=== PATIENT | female | born 1950 | race Caucasian/White ===

== ENCOUNTER 2020-01-23 12:44 | Outpatient (CLI) | payer MEDICARE, OTHER, SELFPAY ==
--- NOTE | ~2020-01-23 | MM_ITS ---
EXAMINATION: MM screening rachel BI w jaime HISTORY: Screening mammogram TECHNIQUE: Craniocaudal and mediolateral oblique 3-D tomosynthesis images were obtained and synthetic 2-D images were generated. CAD analysis was submitted and interpreted. COMPARISON: Comparison to multiple prior studies sequentially, with oldest reviewed study dated 08/22. BREAST PARENCHYMAL COMPOSITION: There are scattered areas of fibroglandular density. FINDINGS: There is no evidence of suspicious mass, calcification, or architectural distortion to sugg est malignancy in either breast. There has been no suspicious interval change. IMPRESSION: 1. No mammographic evidence of malignancy. 2. Recommend routine screening mammography in one year. BI-RADS Category 1: Negative Reviewed, dictated and finalized at location A. [employer] RN
== END 2020-01-23 12:45 | disposition home or self-care (01) ==
LOC: ANHIMG 12:49
PROVIDERS: PCP Family Medicine; Visit Provider Family Medicine
DX: Z12.31 Encounter for screening mammogram for malignant neoplasm of breast (principal)
CPT/HCPCS: 77063; 77067

== ENCOUNTER 2021-09-24 09:50 | Outpatient (CLI) | payer MEDICARE, OTHER, SELFPAY ==
--- NOTE | ~2021-09-24 | DEXA_ITS ---
Bone Density Report Name: Mally De La Rosa Age: 71 Sex: Female Ethnicity: White Date of : 1950 Indication: postmenopausal; Referring Provider: Florentino Cottrell Study: Bone densitometry was performed. Exam Date: September 24, 2021 Accession number: [id number] Bone Density: Region BMD T-score Z-score Classification AP Spine (L1-L4) 1.004 -0.4 1.7 Normal Femoral Neck (Left) 0.707 -1.3 0.5 Osteopenia Total Hip (Left) 0.955 0.1 1.6 Normal Total Hip Bilateral Avg 0.948 0.1 1.6 Normal Femoral Neck (Right) 0.729 -1.1 0.7 Osteopenia Total Hip (Right) 0.941 0.0 1.5 Normal World Health Organization criteria for BMD impression classify patients as: Normal (T-score at or above -1.0), Osteopenia (T-score between -1.0 and -2.5), or Osteoporosis (T-score at or below -2.5). 10-year Fracture Risk(1): Major Osteoporotic Fracture 9.4% Hip Fracture 1.2% Reported Risk Factors: [place] (), Neck BMD=0.707, BMI=28.3 (1) FRAX(R) Version 3.08. Fracture probability calculated for an untreated patient. Fracture probability may be lower if the patient has received treatment. Previous Exams: Region Exam Age BMD T-score BMD Change BMD Change Date g/cm2 vs Baseline vs Previous AP Spine(L1-L4) 09/24/2021 71 1.004 -0.4 -0.001(-0.1%)# 0.004(0.4%) 12/27/2018 68 1.000 -0.4 -0.005(-0.5%)# -0.005(-0.5%) 12/05/2015 65 1.005 -0.4 0.000(0.0%)# 0.044(4.6%)# 08/08/2012 62 0.960 -0.8 -0.044(-4.4%)# -0.018(-1.9%)# 07/17/2008 58 0.979 -0.6 -0.026(-2.6%)* -0.026(-2.6%)* 01/01/2004 53 1.004 -0.4 Total Hip(Left) 09/24/2021 71 0.955 0.1 -0.023(-2.3%)# 0.001(0.1%) 12/27/2018 68 0.954 0.1 -0.023(-2.4%)# 0.002(0.2%) 12/05/2015 65 0.952 0.1 -0.025(-2.6%)# -0.009(-0.9%)# 08/08/2012 62 0.961 0.2 -0.016(-1.7%)# -0.008(-0.8%)# 07/17/2008 58 0.969 0.2 -0.008(-0.9%) -0.008(-0.9%) 01/01/2004 53 0.978 0.3 Total Hip(Right) 09/24/2021 71 0.941 0.0 -0.056(-5.6%)# -0.035(-3.5%)* 12/27/2018 68 0.976 0.3 -0.022(-2.2%)# 0.003(0.3%) 12/05/2015 65 0.973 0.3 -0.025(-2.5%)# 0.036(3.8%)# 08/08/2012 62 0.937 0.0 -0.060(-6.0%)# -0.046(-4.7%)# 07/17/2008 58 0.983 0.3 -0.014(-1.4%) -0.014(-1.4%) 01/01/2004 53 0.997 0.5 *Denotes significance at 95% confidence level, LSC for AP Spine = 0.022 g/cm2, LSC for Total Hip = 0.027 g/cm2 Clinical Information Provided by Patient: Has used the following medications:
== END 2021-09-24 09:51 | disposition home or self-care (01) ==
LOC: ANHIMG 09:53
PROVIDERS: PCP Family Medicine; Visit Provider Physician Assistant Medical
DX: Z78.0 Asymptomatic menopausal state (principal); M85.89 Other specified disorders of bone density and structure, multiple sites
CPT/HCPCS: 77080

== ENCOUNTER 2021-10-27 09:42 | Outpatient (CLI) | payer MEDICARE, OTHER, SELFPAY ==
--- NOTE | ~2021-10-27 | MM_ITS ---
EXAMINATION: MM screening rachel BI w jaime HISTORY: Screening mammogram TECHNIQUE: Craniocaudal and mediolateral oblique 3-D tomosynthesis images were obtained and synthetic 2-D images were generated. CAD analysis was submitted and interpreted. COMPARISON: 01/23/2020 bilateral screening mammogram 01/11/2019 diagnostic right mammogram and limited right breast ultrasound examination 12/27/2018, 12/15/2017 bilateral screening mammogram examinations BREAST PARENCHYMAL COMPOSITION: There are scattered areas of fibroglandular density. FINDINGS: New approximately 3.8 mm circumscribed opacity is noted posteriorly in the upper outer righ t breast on MLO view. New approximately 3.1 mm mass is noted posteriorly in the lower outer right tonny ast. Diagnostic right mammogram and right breast ultrasound examination are recommended. Otherwise there is no evidence of suspicious mass, calcification, or architectural distortion to sugg est malignancy in either breast. There has been no other suspicious interval change. IMPRESSION: 1. New posterior upper outer quadrant right breast 3.8 mm circumscribed mass and new 3.1 mm posterior lower outer right breast circumscribed mass 2. Diagnostic right mammogram and right breast ultrasound are recommended. BI-RADS Category 0: Incomplete: Needs additional imaging evaluation. Reviewed, dictated and finalized at location A. PROCESSOR IMPRESSION: 1. New posterior upper outer quadrant right breast 3.8 mm circumscribed mass an d new 3.1 mm posterior lower outer right breast circumscribed mass 2. Diagnostic right mammogram and right breast ultrasound are recommended. BI-RADS Category 0: Incomplete: Needs additional imaging evaluation.
== END 2021-10-27 09:43 | disposition home or self-care (01) ==
LOC: ANHIMG 09:44
PROVIDERS: PCP Family Medicine; Visit Provider Family Medicine
DX: Z12.31 Encounter for screening mammogram for malignant neoplasm of breast (principal); R92.8 Other abnormal and inconclusive findings on diagnostic imaging of breast
CPT/HCPCS: 77063; 77067

== ENCOUNTER 2021-11-09 12:43 | Outpatient (CLI) | payer MEDICARE, OTHER, SELFPAY ==
--- NOTE | ~2021-11-09 | MMUS_ITS ---
EXAMINATION: MM diagnostic rachel RT w jaime, US breast RT limited HISTORY: Right breast masses on screening mammogram TECHNIQUE: Additional 3-D tomosynthesis images of the right breast were performed and synthetic 2-D i mages were generated. CAD analysis was submitted and interpreted. High resolution limited right breas t ultrasound was performed. COMPARISON: 10/27/2021, 01/23/2020, 01/11/2019, 12/27/2018 , 12/15/2017, 12/05/2015 FINDINGS: MAMMOGRAPHIC FINDINGS: There is a 3 mm oval, obscured, equal density mass in the middle third of the lower-outer breast at t he 8:00 location 5 cm from the nipple. There is a 5 mm oval, circumscribed, equal density mass in the posterior third of the upper outer quadrant breast at the 10:00 location 8 cm from the nipple. ULTRASOUND: There is a 5 mm oval, circumscribed, parallel, hypoechoic mass with no posterior features or internal vascularity at the 10:00 location 5 cm from the nipple. There is a 2 mm round mass with otherwise si milar sonographic features at the 7:00 location 2 cm from the nipple. IMPRESSION: 1. Probably benign right breast masses. 2. Recommend 6 month follow-up right diagnostic mammogram and ultrasound. BI-RADS category 3, probably benign findings. Reviewed, dictated and finalized at location A. NESS PLANNING MANAGER IMPRESSION: 1. Probably benign right breast masses. 2. Recommend 6 month follow-up right diagnostic mammogram and ultrasound. BI-RADS category 3, probably benign findings.
== END 2021-11-09 12:44 | disposition home or self-care (01) ==
LOC: ANHIMG 12:44
PROVIDERS: PCP Family Medicine; Visit Provider Family Medicine
DX: N63.11 Unspecified lump in the right breast, upper outer quadrant (principal); N63.13 Unspecified lump in the right breast, lower outer quadrant
CPT/HCPCS: 76642; 77061; 77065; G0279

== ENCOUNTER 2022-06-11 11:49 | Outpatient (CLI) | payer MEDICARE, OTHER, SELFPAY ==
--- NOTE | ~2022-06-11 | MMUS_ITS ---
EXAMINATION: MM diagnostic rachel RT w jaime, US breast RT limited HISTORY: Six-month follow-up for probably benign right breast masses TECHNIQUE: Craniocaudal, mediolateral, and mediolateral oblique 3-D tomosynthesis images of the right breast were performed and synthetic 2-D images were generated. CAD analysis was submitted and interp reted. High resolution limited right breast ultrasound was performed. COMPARISON: 11/09/2021, 10/27/2021, 05/23/2020, 01/11/2019, 12/27/2018 FINDINGS: MAMMOGRAPHIC FINDINGS: There is stable 5 mm oval, circumscribed, equal density mass in the posterior third of the upper-oute r quadrant breast at the 10:00 location 8 cm from the nipple. The previously described 3 mm mass at t he 8:00 location 5 cm from the nipple was not well demonstrated. ULTRASOUND: A mass at the 10:00 location 5 cm from the nipple has an appearance consistent with a cyst. A [address] is also noted at the 7:00 location 2 cm from the nipple. No suspicious cystic or solid mass is rudy ntified. IMPRESSION: 1. No mammographic or sonographic evidence of malignancy. 2. Routine screening mammography is recommended. BI-RADS Category 2: Benign finding(s). Reviewed, dictated and finalized at location A. IMPRESSION: 1. No mammographic or sonographic evidence of malignancy. 2. Routine screening mammography is recommended. BI-RADS Category 2: Benign finding(s).
== END 2022-06-11 11:50 | disposition home or self-care (01) ==
LOC: ANHIMG 11:50
PROVIDERS: PCP Family Medicine; Visit Provider Physician Assistant
DX: R92.8 Other abnormal and inconclusive findings on diagnostic imaging of breast (principal)
CPT/HCPCS: 76642; 77061; 77065; G0279

== ENCOUNTER 2023-10-18 09:59 | Outpatient (CLI) | payer MEDICARE, OTHER, SELFPAY ==
--- NOTE | ~2023-10-18 | MM_ITS ---
EXAMINATION: MM screening rachel BI w jaime HISTORY: Screening mammogram TECHNIQUE: Craniocaudal and mediolateral oblique 3-D tomosynthesis images were obtained and synthetic 2-D images were generated. Bilateral rotated lateral CC views. CAD analysis was submitted and interp reted. COMPARISON: 06/11/2022 diagnostic right mammogram and limited right breast ultrasound examination 11/09/2021 diagnostic right mammogram and limited right breast ultrasound 10/27/2021, 01/23/2020 bilateral screening mammogram examinations BREAST PARENCHYMAL COMPOSITION: There are scattered areas of fibroglandular density. FINDINGS: There is focal asymmetric irregular density in the posterior mid to upper outer left breast . Diagnostic left mammogram and left breast ultrasound examination are recommended. Otherwise no suspicious mass, architectural distortion, malignant calcification, skin thickening or r etraction or significant new or developing density of either breast is detected. IMPRESSION: 1. New focal asymmetry in the posterior mid to upper outer left breast 2. Diagnostic left mammogram and left breast ultrasound examination are recommended. BI-RADS Category 0: Incomplete: Needs additional imaging evaluation. Reviewed, dictated and finalized at location A. FIC PERSONNEL SUPERVISOR IMPRESSION: 1. New focal asymmetry in the posterior mid to upper outer left breast 2. Diagnostic left mammogram and left breast ultrasound examination are recomme nded. BI-RADS Category 0: Incomplete: Needs additional imaging evaluation.
== END 2023-10-18 10:00 | disposition home or self-care (01) ==
PROVIDERS: PCP Family Medicine; Visit Provider Nurse Practitioner Family
DX: Z12.31 Encounter for screening mammogram for malignant neoplasm of breast (principal); R92.8 Other abnormal and inconclusive findings on diagnostic imaging of breast
CPT/HCPCS: 77063; 77067

== ENCOUNTER 2023-11-10 11:23 | Outpatient (CLI) | payer MEDICARE, OTHER, SELFPAY ==
--- NOTE | ~2023-11-10 | MMUS_ITS ---
EXAMINATION: MM diagnostic rachel LT w jaime, US breast LT complete HISTORY: Follow-up left breast asymmetry TECHNIQUE: Additional 3-D tomosynthesis images of the left breast were performed and synthetic 2-D im ages were generated. CAD analysis was submitted and interpreted. High resolution complete left breast ultrasound was performed. COMPARISON: Comparison to multiple prior studies sequentially, with oldest reviewed study dated 01/23. BREAST PARENCHYMAL COMPOSITION: Breast composed of scattered areas of fibroglandular density FINDINGS: MAMMOGRAPHIC FINDINGS: The left breast is stable. No new masses, calcifications or architectural distortion are identified. The asymmetry located centrally in the left breast on CC view is unchanged dating back to 01/23/2020. ULTRASOUND: Complete US of all 4 quadrants of the left breast and retroareolar region was reviewed. At 3:00, 1 cm from the nipple there is a 3 mm cyst. No suspicious solid masses to suggest malignancy. No evidence for malignancy in the left breast. IMPRESSION: 1. No evidence for malignancy in the left breast. 2. Routine yearly screening mammogram and regular clinical breast examination are recommended. BI-RADS Category 2: Benign finding(s). Reviewed, dictated and finalized at location A. OMIC PATHOLOGY ASSISTANT IMPRESSION: 1. No evidence for malignancy in the left breast. 2. Routine yearly screening mammogram and regular clinical breast examination a re recommended. BI-RADS Category 2: Benign finding(s).
== END 2023-11-10 11:24 | disposition home or self-care (01) ==
PROVIDERS: PCP Family Medicine; Visit Provider Family Medicine
DX: R92.8 Other abnormal and inconclusive findings on diagnostic imaging of breast (principal)
CPT/HCPCS: 76641; 77061; 77065; G0279

== ENCOUNTER 2024-05-09 14:29 | Outpatient (CLI) | payer MEDICARE, OTHER, SELFPAY ==
--- NOTE | ~2024-05-09 | XR_ITS ---
Right foot Technique: AP and lateral views were obtained. Clinical History: Pain Findings: No acute fracture or dislocation is seen. Osseous alignment is anatomic. Joint spaces are p reserved without erosive or degenerative change. Soft tissues are unremarkable. Impression: Unremarkable right foot radiographs. Reviewed, dictated and finalized at location . Impression: Unremarkable right foot radiographs.
--- NOTE | ~2024-05-09 | XR_ITS ---
Left ankle Technique: AP, oblique, and lateral views were obtained. Clinical History: Pain Findings: No acute fracture or dislocation is seen. Osseous alignment is anatomic. Ankle mortise and other visualized joint spaces are preserved. Soft tissues are otherwise unremarkable. Impression: Unremarkable left ankle. Reviewed, dictated and finalized at location . Impression: Unremarkable left ankle.
--- NOTE | ~2024-05-09 | XR_ITS ---
Left foot Technique: AP and lateral views were obtained. Clinical History: Pain Findings: No acute fracture or dislocation is seen. Osseous alignment is anatomic. Joint spaces are p reserved without erosive or degenerative change. Soft tissues are unremarkable. Impression: Unremarkable left foot radiographs. Reviewed, dictated and finalized at location . Impression: Unremarkable left foot radiographs.
== END 2024-05-09 14:30 ==
PROVIDERS: PCP Family Medicine; Visit Provider Family Medicine
DX: M79.671 Pain in right foot (principal); M79.672 Pain in left foot; M25.571 Pain in right ankle and joints of right foot; M25.572 Pain in left ankle and joints of left foot
CPT/HCPCS: 73610; 73620

== ENCOUNTER 2024-07-20 13:30 | Outpatient (RCR) | payer MEDICARE, OTHER, SELFPAY ==
--- NOTE | 2024-06-19 10:00 | OPREHPOC ---
Outpatient Therapy Plan of Care This is a Multidisciplinary Plan of Care that may contain components documented by all disciplines (PT, OT, and ST.) PT Problem 1 PT Problem #1 Knowledge Deficit PT Goal 1 Goal [place] with HEP Target Visit 4 Progress Met PT Problem 2 PT Problem #2 Impaired Range of Motion PT Goal 1 Goal Demonstrate 10+ degrees yulia dorsiflexion Target Visit 8 PT Problem 3 PT Problem #3 Impaired Gait PT Goal 1 Goal Patient will ambulate with even stride length bilaterally Target Visit 8 PT Problem 4 PT Problem #4 Impaired Strength PT Goal 1 Goal Patient will demonstrate yulia ankle strength to 5/5 to improve gross stabilization of ankles for ADL performance Target Visit 8
--- NOTE | 2024-06-19 10:00 | PTOPEVAL1 ---
Assessment and note entered by Ryan Hernandez, PT Evaluation Information Assessment Status Evaluation Diagnosis Right Foot pain Onset January 2024 Subjective Information Reports that she is having pain in both feet but mostly is on the right. The pain is not constant but has been going on for a few months and does not seem to begetting better. The more she is on her feet the more it hurts. Will occasionally get pain at night. In January she got really sick and it seem that she had issues starting after that. Reported Pain Level Pain Score 2: Self Report Assessment PT Clinical Summary Patient presents with sings and symptoms consistent with plantar fasciitis. She is showing gait modification and External Rotation of yulia feet and poor ankle dorsiflexion bilaterally. Tenderness noted to yulia plantar fascia. Patient will benefit from skilled therapy to address these deficits for gait improvement, ankle ROM improvement, and gross arch support strength for oil heaterman pain releif and function. Plan of Care Interventions Electrical Stimulation,Hot Pack/Cold Pack,Manual Therapy,Neuro Re-education,Therapeutic Activities, Therapeutic Exercise PT Services Indicated Yes Treatment Frequency and 2x/week for 8 visits Duration These treatments will address the objective and functional deficits as defined above. The patient will be advanced safely and appropriately in order for the patient to progress towards his/her prior level of function. Additional exercises will be introduced and as well as a comprehensive home exercise program upon discharge, if needed, ?to ensure carryover of functional gains achieved in the clinic. This treatment plan has been reviewed and agreement upon by the patient.
--- NOTE | 2024-07-18 09:46 | PCPTNOTE ---
Patient was canceled 07/10/24 due to therapist out with illness.
--- NOTE | 2024-07-20 14:14 | OPREHPOC ---
Outpatient Therapy Plan of Care This is a Multidisciplinary Plan of Care that may contain components documented by all disciplines (PT, OT, and ST.) PT Problem 1 PT Problem #1 Knowledge Deficit PT Goal 1 Goal / Goal Update [place] with HEP Target Visit 4 Progress Met PT Problem 2 PT Problem #2 Impaired Range of Motion PT Goal 1 Goal / Goal Update Demonstrate 10+ degrees yulia dorsiflexion Target Visit 8 Progress Met PT Problem 3 PT Problem #3 Impaired Gait PT Goal 1 Goal / Goal Update Patient will ambulate with even stride length bilaterally Target Visit 8 Progress Met PT Problem 4 PT Problem #4 Impaired Strength PT Goal 1 Goal / Goal Update Patient will demonstrate yulia ankle strength to 5/5 to improve gross stabilization of ankles for ADL performance Target Visit 8 Progress Met
--- NOTE | 2024-07-20 14:14 | PTOPDC ---
Assessment and note entered by Ryan Hernandez, PT Evaluation Information Assessment Status Discharge Diagnosis Right Foot pain Onset January 2024 Subjective Information Reports that overalls he feels eh is doing a lot better. Occasionally has bouts of increased pain, but not nearly as frequent or as intense as when she started. Feels comfortable with HEP and discharge. Reported Pain Level Pain Score 1: Self Report Assessment PT Clinical Summary Patient met all goals for therapy and is suitable for discharge to [facility] at this time. No concerns for discharge. Plan of Care PT Services Indicated D/C to [facility]
== END 2024-07-23 07:55 | disposition home or self-care (01) ==
LOC: ANHGOSHPT 13:30
PROVIDERS: PCP Family Medicine; Visit Provider Family Medicine
DX: M79.671 Pain in right foot (principal)
CPT/HCPCS: 97110; 97140; 97161; 97530

== ENCOUNTER 2024-11-23 09:12 | Outpatient (CLI) | payer MEDICARE, OTHER, SELFPAY | END 2024-11-23 09:13 | disposition home or self-care (01) | LOC: ANHAUDASC 09:13 | PROVIDERS: PCP Family Medicine; Visit Provider Family Medicine | DX: H90.3 Sensorineural hearing loss, bilateral (principal) | CPT/HCPCS: 92557; 92567 ==

== ENCOUNTER 2024-12-27 14:02 | Outpatient (CLI) | payer MEDICARE, OTHER, SELFPAY ==
--- NOTE | ~2024-12-27 | XR_ITS ---
EXAM: XR hand BI arthritis min 3V DATE: 12/27/2024 14:17 HISTORY: M25.541 - Pain in joints of right hand . COMPARISON: None available. FINDINGS: Normal mineralization. No fracture or dislocation. No lytic or blastic lesion. Mild and mo derate scattered arthritic changes in the bilateral hands, typical of osteoarthritis. No erosion or p eriosteal change. Soft tissues within normal limits. 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 Reviewed, dictated and finalized at location K. OUT MAN
== END 2024-12-27 14:03 | disposition home or self-care (01) ==
LOC: GOSHIMG 14:03
PROVIDERS: PCP Family Medicine; Visit Provider Family Medicine
DX: M25.542 Pain in joints of left hand (principal); M25.541 Pain in joints of right hand
CPT/HCPCS: 73130

== ENCOUNTER → 2025-01-11 09:35 | Outpatient (CLI) | payer MEDICARE, OTHER, SELFPAY ==
--- OUTSIDE RECORDS SUMMARY | 2025-01-11 07:53 | XMS_ITS | Clinical Summary ---
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 Gender Identity Not on file Sexual Orientation Not on file Plan of Treatment Health Maintenance Due Date Last Done Comments DEXA Bone Density 1950 Hepatitis C Virus (HCV) Screening 1950 TdaP Immunization 1950 Colonoscopy 1996 Colorectal Cancer Screening 1996 Cologuard 2001 Immunochemical Fecal Occult Blood 2001 Mammogram 2001 Zoster Immunization (1 of 2) 2001 Pneumococcal Immunization (50+ years) (2 of 2 - PPSV23) 10/28/2022 10/28/2021 Influenza Immunization (#1) 2024 12/0 11/2020, 09/23/2020, 09/10/2019, Additional history exists SARS-COV-2 Immunization ( season) 2024 09/04/2021, 01/31/2021, 01/10/2021 Respiratory Syncytial Virus (RSV) Immunization (Adult) (1 - 1-dose 75+ series) 2026 Hepatitis B Immunization Aged Out No longer eligible based on patient's age to complete this topic Meningococcal Immunization (ACWY) Aged Out No longer eligible based on patient's age to complete this topic Rotavirus Immunization Aged Out No lo nger eligible based on patient's age to complete this topic
--- OUTSIDE RECORDS SUMMARY | 2025-01-11 07:53 | XMS_ITS | Clinical Summary ---
Author Organization [facility] Address [address] [place] [address] Care Team Providers Care A And P Mechanic Name Role Phone Diane Cabrera MD Primary Care Provider [phone] [phone] Source Comments [facility],non-owned Affiliates and Associated Physician Practices is amultiple site organization consisting of ambulatory clinics and hospital sitesin [place], [place], [place] and [place]. This disclosure is being madepursuant to the Care Everywhere program and may not contain all information available regarding this patient. Last updated 18.[facility] Allergies No known active allergies Medications * Be aware that medications may not be up to date on this document. Alwaysverify current medications with the patient. Medication Sig Dispensed Refills Start Date End Date Status atorvastatin (Lipitor) 10 MG tablet Take 1 (one) tablet by mouth once daily 07/01/2024 Active levothyroxine (Synthroid) 50 MCG tablet Take 1 (one) tablet by mouth once daily 08/06/2024 Active PARoxetine CR 24hr (Paxil-Cr) 12.5 MG tablet Take 1 (one) tablet by mouth once daily 07/09/2024 Active propranolol (Inderal) 10 MG tablet TAKE 3 TABLETS BY MOUTH EVERY 12 HOURS 08/25/2024 Active Active Problems No known active problems Encounters Date Type Department Care Team Description 01/09/2025 11:00 AM MANAGER ONLINE Office Visit [facility] - [facility] [address] [place] [phone] Raven Salas P, BEAD PICKER-SHEARING SHED WORKER Orbital lesion (Primary Dx) 01/09/2025 Telephone [facility] [address] [place] [address] Raven Salas, BEAD PICKER-SHEARING SHED WORKER Follow-up 11/15/2024 6:33 AM MANAGER ONLINE - 11/15/2024 11:59 PM MANAGER ONLINE Hospital Encounter [facility] CAT SCAN [address] [place] [address] Jhonny Quick MD Discharge Disposition: Home or Self Care 11/15/2024 Travel 10/17/2024 8:45 AM MANAGER ONLINE Office Visit [facility] [place] [address] Jhonny Quick MD Orbital lesion (Primary Dx) 10/17/2024 Travel from Last 3 Months Social History Tobacco Use Types Packs/Day Years Used Date Smoking Tobacco: Never Assessed Sex and Gender Information Value Date Recorded Sex Assigned at Not on file Gender Identity Not on file Sexual Orientation Not on file Plan of Treatment Health Maintenance Due Date Last Done Comments BONE DENSITY TESTING 1950 COLOGUARD (AGES 45-75) - COL ON CA SCREENING 1950 COLON MONITORING 1950 COLONOSCOPY - COLON CA SCREENING 1950 CT COLONOGRAPHY - COLON CA SCREENING 1950 Colorectal Cancer Screening 1950 FIT - COLON CA SCREENING 1950 FLEX SIG - COLON CA SCREENING 1950 MAMMOGRAM 1950 MEDICARE AWV 12 MONTHS 1950 HEPATITIS C SCREENING 05/01/1969 DTAP/TDAP/TD VACCINES (1 - Tdap) 1970 PNEUMOCOCCAL VACCINE 50+ (1 of 1 - PCV) 2001 ZOSTER VACCINE (1 of 2) 2001 COVID-19 VACCINE ( - 2023-2 5 season) 2024 INFLUENZA VACCINE (#1) 2024 DEPRESSION SCREENING 11/28/2024 Respiratory Syncytial Virus (RSV) Vaccine Pt: or over 60 yrs (1 - 1-dose 75+ series) 2026 HEPATITIS B VACCINE Aged Out No longe r eligible based on patient's age to complete this topic HIB VACCINE Aged Out No longer eligi ble based on patient's age to complete this topic HPV VACCINE Aged Out No longer eligi ble based on patient's age to complete this topic MENINGOCOCCAL (Group B) VACCINE Aged Out No longer eligible based on patient's age to complete this topic MENINGOCOCCAL VACCINE Aged Out No daniel justin eligible based on patient's age to complete this topic Procedures Procedure Name Priority Date/Time Associated Diagnosis Comments CT ORBITS WWO CONTRAST Routine 11/15/2024 6:55 AM MANAGER ONLINE Orbital lesion CREATININE - POCT INTERFACED Routine 11/15/2024 6:40 AM MANAGER ONLINE from Last 3 Months Results * CT Orbits Wwo Contrast (11/15/2024 6:55 AM MANAGER ONLINE) Anatomical Region Laterality Modality Head Computed Tomogra phy 11/15/2024 7:05 AM MANAGER ONLINE Impressions 11/15/2024 11:15 AM MANAGER ONLINE IMPRESSION: 1.Rim-enhancing fluid collection/cystic lesion measuring up to 1.3 x 0.9 x 1.1 cm adjacent to the left lacrimal gland which may represent an inflamed left lacrimal gland cyst or abscess. 2.Mild enlargement and increased enhancement of left lacrimal gland compared to the right lacrimal gland which may represent inflammation of left lacrimal gland. The report was drafted by Krys Ledesma MD (residential direct support professional). I, Conrado Dahl MD have personally reviewed and interpreted this examination/study. > Interpreting Provider: Conrado Dahl MD on 11/15/2024 11:15 AM Narrative 11/15/2024 11:15 AM MANAGER ONLINE PROCEDURE: CT ORBITS WWO CONTRAST, DATE/TIME OF EXAM: 11/15/2024 6:56 AM, LOCATION [facility] INDICATION: H05.89: Orbital lesion COMPARISON: None. TECHNICAL: Contiguous axial images obtained through the orbits prior to and after the administration of IOPAMIDOL 76 % IV SOLN:100 mL intravenous contrast. Coronal and sagittal images were post processed. FINDINGS: There is a rim-enhancing fluid collection/cystic lesion measuring up to 1.3 x 0.9 x 1.1 cm (series 7 image 55, series 8 image 40) adjacent to the left lacrimal gland which may represent an inflamed left lacrimal gland cyst or abscess. Mild enlargement and increased enhancement of left lacrimal gland (series 7 image 61) compared to the right lacrimal gland. The globes are normal. The preseptal and postseptal soft tissues are normal without masses or inflammatory changes. The extraocular muscles, optic nerves and optic chiasm are normal. Normal enhancement of the superior opthalmic veins and cavernous sinuses is present. Small mucus retention cyst within the right maxillary sinus, otherwise imaged portions of the paranasal sinuses and mastoids are clear. Rightward deviation of nasal septum. Left conchal bullosa. The imaged brain is normal in attenuation. Procedure Note Conrado Dahl MD - 11/15/2024 PROCEDURE: CT ORBITS WWO CONTRAST, DATE/TIME OF EXAM: 11/15/2024 6:56AM, LOCATION [facility] INDICATION: H05.89: Orbital lesion COMPARISON: None. TECHNICAL: Contiguous axial images obtained through the orbits prior toand after the administration of IOPAMIDOL 76 % IV SOLN:100 mL intravenous contrast. Coronal and sagittal images were post processed. FINDINGS: There is a rim-enhancing fluid collection/cystic lesion measuring up to1.3 x 0.9 x 1.1 cm (series 7 image 55, series 8 image 40) adjacent to theleft lacrimal gland which may represent an inflamed left lacrimal gland cystor abscess. Mild enlargement and increased enhancement of left lacrimalgland (series 7 image 61) compared to the right lacrimal gland. The globes are normal. The preseptal and postseptal soft tissues arenormal without masses or inflammatory changes. The extraocular muscles, optic nerves and optic chiasm are normal. Normal enhancement of the superior opthalmic veins and cavernous sinusesis present. Small mucus retention cyst within the right maxillary sinus, otherwise imaged portions of the paranasal sinuses and mastoids are clear. Rightward deviation of nasal septum. Left conchal bullosa. The imaged brain is normal in attenuation. IMPRESSION: 1.Rim-enhancing fluid collection/cystic lesion measuring up to 1.3 x 0.9x 1.1 cm adjacent to the left lacrimal gland which may represent aninflamed left lacrimal gland cyst or abscess. 2.Mild enlargement and increased enhancement of left lacrimal gland compared to the right lacrimal gland which may represent inflammation of left lacrimal gland. The report was drafted by Krys Ledesma MD (residential direct support professional). I, Conrado Dahl MD have personally reviewed and interpreted this examination/study. > Interpreting Provider: Conrado Dahl MD on 11/15/2024 11:15 AM Jhonny Quick MD CT ORDERABLES * CREATININE - POCT INTERFACED (11/15/2024 6:40 AM MANAGER ONLINE) Creatinine POCT 0.58 0.30 - 1.30 mg/dL 11/15/2024 6:45 AM MANAGER ONLINE [facility] eGFR >90 >=90 mL/min/1.7 3 m2 11/15/2024 6:45 AM MANAGER ONLINE [facility] Blood BLOOD SPECIMEN / Unknown 11/15/2024 6:40 AM MANAGER ONLINE 11/15/2024 6:45 AM MANAGER ONLINE Jhonny Quick MD LAB - POINT OF CARE ORDERABLES Performing Organization Address City/State/[facility] Co de Phone Number [facility] [address] [place] [address], [facility] [phone] from Last 3 Months Care Teams A And P Mechanic Relationship Specialty Start Date End Date Diane Cabrera MD [address] [place] [address] PCP - General Family Medicine 09/17/24
--- OUTSIDE RECORDS SUMMARY | 2025-01-11 07:53 | XMS_ITS | Referral Summary ---
Author Organization [facility] Address [address] [facility] [place] [address] Care Team Providers Care Behavior Analyst Name Role Phone Diane Cabrera MD Primary Care Provider [phone] [phone] Source Comments [facility],non-owned Affiliates and Associated Physician Practices is amultiple site organization consisting of ambulatory clinics and hospital sitesin [place], [place], [place] and [place]. This disclosure is being madepursuant to the Care Everywhere program and may not contain all information available regarding this patient. Last updated 18.[facility] Encounters Date Type Department Care Team Description 01/09/2025 Telephone [facility] [place] [address] Raven Salas APRN-LINDA Follow-up 01/09/2025 11:00 AM BIOLOGIST AIDE Office Visit [facility] [address] [place] [address] Raven Salas, COMPUTER FORENSIC SPECIALIST-CUSTOMER SOLUTIONS ARCHITECT Orbital lesion (Primary Dx) 11/15/2024 Travel 11/15/2024 6:33 AM BIOLOGIST AIDE - 11/15/2024 11:59 PM BIOLOGIST AIDE Hospital Encounter [facility] CAT SCAN [address] [place] [address] Jhonny Quick MD Discharge Disposition: Home or Self Care 10/17/2024 Travel 10/17/2024 8:45 AM BIOLOGIST AIDE Office Visit [facility] [address] [place] [address] Jhonny Quick MD Orbital lesion (Primary Dx) from Last 3 Months Allergies No known active allergies Medications * [...] Active Active Problems No known active problems Social History Tobacco Use Types Packs/Day Years Used Date Smoking Tobacco: Never Assessed Sex and Gender Information Value Date Recorded Sex Assigned at Not on file Gender Identity Not on file Sexual Orientation Not on file Plan of Treatment Not on file Procedures Procedure Name Priority Date/Time Associated Diagnosis Comments CT ORBITS WWO CONTRAST Routine 11/15/2024 6:55 AM BIOLOGIST AIDE Orbital lesion CREATININE - POCT INTERFACED Routine 11/15/2024 6:40 AM BIOLOGIST AIDE from Last 3 Months Results * CT Orbits Wwo Contrast (11/15/2024 6:55 AM BIOLOGIST AIDE) Anatomical Region Laterality Modality Head Computed Tomogra phy 11/15/2024 7:05 AM BIOLOGIST AIDE Impressions 11/15/2024 11:15 AM BIOLOGIST AIDE IMPRESSION: 1.Rim-enhancing fluid collection/cystic lesion measuring up to 1.3 x 0.9 x 1.1 cm adjacent to the left lacrimal gland which may represent an inflamed left lacrimal gland cyst or abscess. 2.Mild enlargement and increased enhancement of left lacrimal gland compared to the right lacrimal gland which may represent inflammation of left lacrimal gland. The report was drafted by Krys Ledesma MD (vice president of academic affairs). I, Conrado Dahl MD have personally reviewed and interpreted this examination/study. > Interpreting Provider: Conrado Dahl MD on 11/15/2024 11:15 AM Narrative 11/15/2024 11:15 AM BIOLOGIST AIDE PROCEDURE: CT ORBITS WWO CONTRAST, DATE/TIME OF EXAM: 11/15/2024 6:56 AM, LOCATION [facility] INDICATION: H05.89: Orbital lesion COMPARISON: None. [...] CONTRAST, DATE/TIME OF EXAM: 11/15/2024 6:56AM, LOCATION [facility] INDICATION: H05.89: Orbital lesion COMPARISON: None. [...] report was drafted by Krys Ledesma MD (vice president of academic affairs). I, Conrado Dahl MD have personally reviewed and interpreted this examination/study. > Interpreting Provider: Conrado Dahl MD on 11/15/2024 11:15 AM Jhonny Quick MD CT ORDERABLES * CREATININE - POCT INTERFACED (11/15/2024 6:40 AM BIOLOGIST AIDE) Creatinine POCT 0.58 0.30 - 1.30 mg/dL 11/15/2024 6:45 AM BIOLOGIST AIDE [facility] eGFR >90 >=90 mL/min/1.7 3 m2 11/15/2024 6:45 AM BIOLOGIST AIDE [facility] Blood BLOOD SPECIMEN / Unknown 11/15/2024 6:40 AM BIOLOGIST AIDE 11/15/2024 6:45 AM BIOLOGIST AIDE Jhonny Quick MD LAB - POINT OF CARE ORDERABLES [facility] [address] [place] [address], [facility] [phone] from Last 3 Months Care Teams Behavior Analyst Relationship Specialty Start Date End Date Diane Cabrera MD [address] [place] [address] PCP - General Family Medicine 09/17/24
--- OUTSIDE RECORDS SUMMARY | 2025-01-11 07:53 | XMS_ITS | Patient Health Summary ---
Author Organization [facility] Address [address] [facility] [place] [address] Care Team Providers Care Pricing Associate Name Role Phone Diane Cabrera MD Primary Care Provider [phone] [phone] Note from [facility],non-owned Affiliates and Associated Physician Practices is amultiple site organization consisting of ambulatory clinics and hospital sitesin [place], [place], [place] and [place]. This disclosure is being madepursuant to the Care Everywhere program and may not contain all information available regarding this patient. Last updated 18.[facility] Allergies No known active allergies Medications * Be aware that medications may not be up to date on this document. Alwaysverify current medications with the patient. * atorvastatin (Lipitor) 10 MG tablet(Started 07/01/2024) Take 1 (one) tablet by mouth once daily * levothyroxine (Synthroid) 50 MCG tablet(Started 08/06/2024) Take 1 (one) tablet by mouth once daily * PARoxetine CR 24hr (Paxil-Cr) 12.5 MG tablet(Started 07/09/2024) Take 1 (one) tablet by mouth once daily * propranolol (Inderal) 10 MG tablet(Started 08/25/2024) TAKE 3 TABLETS BY MOUTH EVERY 12 HOURS Active Problems No known active problems Social History Tobacco Use Types Packs/Day Years Used Date Smoking Tobacco: Never Assessed Sex and Gender Information Value Date Recorded Sex Assigned at Not on file Gender Identity Not on file Sexual Orientation Not on file Procedures * CT ORBITS WWO CONTRAST(Performed 11/15/2024) Performed for Orbital lesion * CREATININE - POCT INTERFACED(Performed 11/15/2024) * EYE EXAM(Performed 09/14/2024) Results * CT Orbits Wwo Contrast (11/15/2024 6:55 AM DELIVERY DRIVER ASSISTANT) Anatomical Region Laterality Modality Head Computed Tomogra phy 11/15/2024 7:05 AM DELIVERY DRIVER ASSISTANT Impressions 11/15/2024 11:15 AM DELIVERY DRIVER ASSISTANT IMPRESSION: 1.Rim-enhancing fluid collection/cystic lesion measuring up [...] drafted by Krys Ledesma MD (vice president consulting services). I, Conrado Dahl MD have personally reviewed and interpreted this examination/study. > Interpreting Provider: Conrado Dahl MD on 11/15/2024 11:15 AM Narrative 11/15/2024 11:15 AM DELIVERY DRIVER ASSISTANT PROCEDURE: CT ORBITS WWO CONTRAST, DATE/TIME OF EXAM: 11/15/2024 6:56 AM, LOCATION [facility] INDICATION: H05.89: Orbital lesion COMPARISON: None. [...] CONTRAST, DATE/TIME OF EXAM: 11/15/2024 6:56AM, LOCATION [facility] INDICATION: H05.89: Orbital lesion COMPARISON: None. [...] drafted by Krys Ledesma MD (vice president consulting services). I, Conrado Dahl MD have personally reviewed and interpreted this examination/study. > Interpreting Provider: Conrado Dahl MD on 11/15/2024 11:15 AM Jhonny Quick MD CT ORDERABLES * CREATININE - POCT INTERFACED (11/15/2024 6:40 AM DELIVERY DRIVER ASSISTANT) Creatinine POCT 0.58 0.30 - 1.30 mg/dL 11/15/2024 6:45 AM DELIVERY DRIVER ASSISTANT [facility] eGFR >90 >=90 mL/min/1.7 3 m2 11/15/2024 6:45 AM DELIVERY DRIVER ASSISTANT [facility] Blood BLOOD SPECIMEN / Unknown 11/15/2024 6:40 AM DELIVERY DRIVER ASSISTANT 11/15/2024 6:45 AM DELIVERY DRIVER ASSISTANT Jhonny Quick MD LAB - POINT OF CARE ORDERABLES [facility] [address] [place] [address], [facility] [phone] * EYE EXAM (09/14/2024) Anatomical Region Laterality Modality Other Narrative 09/14/2024 Ordered by an unspecified provider. Scanned Document SCANNING ONLY Care Teams Pricing Associate Relationship Specialty Start Date End Date Diane Cabrera MD [address] [place] [address] PCP - General Family Medicine 09/17/24
--- OUTSIDE RECORDS SUMMARY | 2025-02-05 10:30 | XMS_ITS | Referral Summary ---
Author Organization [facility] Address [address] [place] [address] Care Team Providers Care Childrens Club Attendant Name Role Phone Diane Cabrera MD Primary Care Provider [phone] [phone] Source Comments [facility],non-owned Affiliates and Associated Physician Practices is amultiple site organization consisting of ambulatory clinics and hospital sitesin [place], [place], [place] and [place]. This disclosure is being madepursuant to the Care Everywhere program and may not contain all information available regarding this patient. Last updated 18.[facility] Encounters Date Type Department Care Team Description 01/09/2025 Telephone [facility] [address] [place] [address] Raven Salas APRN-LINDA Follow-up 01/09/2025 11:00 AM EDITOR FARM JOURNAL Office Visit [facility] [address] [place] [address] Raven Salas APRN-LINDA Orbital lesion (Primary Dx) 11/15/2024 Travel 11/15/2024 6:33 AM EDITOR FARM JOURNAL - 11/15/2024 11:59 PM [facility] Hospital Encounter [facility] CAT SCAN [address] [place] [address] Jhonny Quick MD Discharge Disposition: Home or [...] ORBITS WWO CONTRAST Routine 11/15/2024 6:55 AM EDITOR FARM JOURNAL Orbital lesion CREATININE - POCT INTERFACED Routine 11/15/2024 6:40 AM EDITOR FARM JOURNAL from Last 3 Months Results * CT Orbits Wwo Contrast (11/15/2024 6:55 AM EDITOR FARM JOURNAL) Anatomical Region Laterality Modality Head Computed Tomogra phy 11/15/2024 7:05 AM EDITOR FARM JOURNAL Impressions 11/15/2024 11:15 AM EDITOR FARM JOURNAL IMPRESSION: 1.Rim-enhancing fluid collection/cystic lesion measuring up [...] by Krys Ledesma MD (vice president of sales). I, Conrado Dahl MD have personally reviewed and interpreted this examination/study. > Interpreting Provider: Conrado Dahl MD on 11/15/2024 11:15 AM Narrative 11/15/2024 11:15 AM EDITOR FARM JOURNAL PROCEDURE: CT ORBITS WWO CONTRAST, DATE/TIME OF EXAM: 11/15/2024 6:56 AM, LOCATION [facility] INDICATION: H05.89: Orbital lesion [...] CONTRAST, DATE/TIME OF EXAM: 11/15/2024 6:56AM, LOCATION [facility] INDICATION: H05.89: Orbital lesion [...] by Krys Ledesma MD (vice president of sales). I, Conrado Dahl MD have personally reviewed and interpreted this examination/study. > Interpreting Provider: Conrado Dahl MD on 11/15/2024 11:15 AM Jhonny Quick MD CT ORDERABLES * CREATININE - POCT INTERFACED (11/15/2024 6:40 AM EDITOR FARM JOURNAL) Creatinine POCT 0.58 0.30 - 1.30 mg/dL 11/15/2024 6:45 AM EDITOR FARM JOURNAL [facility] eGFR >90 >=90 mL/min/1.7 3 m2 11/15/2024 6:45 AM EDITOR FARM JOURNAL [facility] Blood BLOOD SPECIMEN / Unknown 11/15/2024 6:40 AM EDITOR FARM JOURNAL 11/15/2024 6:45 AM EDITOR FARM JOURNAL Jhonny Quick MD LAB - POINT OF CARE ORDERABLES [facility] [address] [place] [address], [facility] [phone] from Last 3 Months Care Teams Childrens Club Attendant Relationship Specialty Start Date End Date Diane Cabrera MD [address] [place] [phone] PCP - General Family Medicine 09/17/24
--- OUTSIDE RECORDS SUMMARY | 2025-02-05 10:30 | XMS_ITS | Clinical Summary ---
Author Organization [facility] [employer] Address [address] [place] [address] Care Team Providers Care Dietary Services Manager Name Role Phone Diane Cabrera MD Primary Care Provider [phone] [phone] Source Comments [facility] [employer],non-owned Affiliates and Associated Physician Practices is amultiple site organization consisting of ambulatory clinics and hospital sitesin [place], [place], [place] and [place]. This disclosure is being madepursuant to the Care Everywhere program and may not contain all information available regarding this patient. Last updated 18.[facility] Allergies No known active allergies Medications * [...] Department Care Team Description 01/09/2025 11:00 AM ELECTRICIANS TOP HELPER Office Visit [facility] [address] [place] [phone] Raven Salas P, GASOLINE LOCOMOTIVE CRANE OPERATOR-MUSIC ASSISTANT Orbital lesion (Primary Dx) 01/09/2025 Telephone [facility] [address] [facility] [place] [address] Raven Salas, GASOLINE LOCOMOTIVE CRANE OPERATOR-MUSIC ASSISTANT Follow-up 11/15/2024 6:33 AM ELECTRICIANS TOP HELPER - 11/15/2024 11:59 PM ELECTRICIANS TOP HELPER Hospital Encounter [facility] CAT SCAN [address] [place] [address] Jhonny Quick MD Discharge Disposition: Home or [...] ORBITS WWO CONTRAST Routine 11/15/2024 6:55 AM ELECTRICIANS TOP HELPER Orbital lesion CREATININE - POCT INTERFACED Routine 11/15/2024 6:40 AM ELECTRICIANS TOP HELPER from Last 3 Months Results * CT Orbits Wwo Contrast (11/15/2024 6:55 AM ELECTRICIANS TOP HELPER) Anatomical Region Laterality Modality Head Computed Tomogra phy 11/15/2024 7:05 AM ELECTRICIANS TOP HELPER Impressions 11/15/2024 11:15 AM ELECTRICIANS TOP HELPER IMPRESSION: 1.Rim-enhancing fluid collection/cystic lesion measuring up to 1.3 x 0.9 x 1.1 cm adjacent to the left lacrimal gland which may represent an inflamed left lacrimal gland cyst or abscess. 2.Mild enlargement and increased enhancement of left lacrimal gland compared to the right lacrimal gland which may represent inflammation of left lacrimal gland. The report was drafted by Krys Ledesma MD (president consumer electronics company). I, Conrado Dahl MD have personally reviewed and interpreted this examination/study. > Interpreting Provider: Conrado Dahl MD on 11/15/2024 11:15 AM Narrative 11/15/2024 11:15 AM ELECTRICIANS TOP HELPER PROCEDURE: CT ORBITS WWO CONTRAST, DATE/TIME OF EXAM: 11/15/2024 6:56 AM, LOCATION [facility] INDICATION: H05.89: Orbital lesion COMPARISON: None. [...] CONTRAST, DATE/TIME OF EXAM: 11/15/2024 6:56AM, LOCATION [facility] INDICATION: H05.89: Orbital lesion COMPARISON: None. [...] report was drafted by Krys Ledesma MD (president consumer electronics company). I, Conrado Dahl MD have personally reviewed and interpreted this examination/study. > Interpreting Provider: Conrado Dahl MD on 11/15/2024 11:15 AM Jhonny Quick MD CT ORDERABLES * CREATININE - POCT INTERFACED (11/15/2024 6:40 AM ELECTRICIANS TOP HELPER) Creatinine POCT 0.58 0.30 - 1.30 mg/dL 11/15/2024 6:45 AM ELECTRICIANS TOP HELPER [facility] eGFR >90 >=90 mL/min/1.7 3 m2 11/15/2024 6:45 AM ELECTRICIANS TOP HELPER [facility] Blood BLOOD SPECIMEN / Unknown 11/15/2024 6:40 AM ELECTRICIANS TOP HELPER 11/15/2024 6:45 AM ELECTRICIANS TOP HELPER Jhonny Quick MD LAB - POINT OF CARE ORDERABLES [facility] [address] [place] [address], [facility] [phone] from Last 3 Months Care Teams Dietary Services Manager Relationship Specialty Start Date End Date Diane Cabrera MD [address] [place], [place] [address] PCP - General Family Medicine 09/17/24
--- OUTSIDE RECORDS SUMMARY | 2025-02-05 10:30 | XMS_ITS | Clinical Summary ---
Author Organization [facility] Care Team Providers Care Heating And Cooling Systems Engineer Name Role Phone Unavailable Primary Care Provider Unavailabl e Social History Tobacco Use Types Packs/Day Years Used Date Smoking Tobacco: Never Assessed Comments Unknown Sex and Gender Information Value Date Recorded Sex Assigned at Not on file Legal Sex Female 9:30 AM SOLAR RESOURCE ASSESSOR Gender Identity Not on file Sexual Orientation [...]
--- OUTSIDE RECORDS SUMMARY | 2025-02-05 10:30 | XMS_ITS | Patient Health Summary ---
Author Organization [facility] Address [address] [place] [address] Care Team Providers Care School Child Care Attendant Name Role Phone Diane Cabrera MD Primary Care Provider [phone] Note from [facility],non-owned Affiliates and Associated Physician Practices is amultiple site organization consisting of ambulatory clinics and hospital sitesin [place], [place], [place] and [place]. This disclosure is being madepursuant to the Care Everywhere program and may not contain all information available regarding this patient. Last updated 18.[facility] Allergies No known active allergies Medications * [...] CT Orbits Wwo Contrast (11/15/2024 6:55 AM COLLEGE SPECIALIST) Anatomical Region Laterality Modality Head Computed Tomogra phy 11/15/2024 7:05 AM COLLEGE SPECIALIST Impressions 11/15/2024 11:15 AM COLLEGE SPECIALIST IMPRESSION: 1.Rim-enhancing fluid collection/cystic lesion measuring up to 1.3 x 0.9 x 1.1 cm adjacent to the left lacrimal gland which may represent an inflamed left lacrimal gland cyst or abscess. 2.Mild enlargement and increased enhancement of left lacrimal gland compared to the right lacrimal gland which may represent inflammation of left lacrimal gland. The report was drafted by Krsy Ledesma MD (vice president corporate communications). I, Conrado Dahl MD have personally reviewed and interpreted this examination/study. > Interpreting Provider: Conrado Dahl MD on 11/15/2024 11:15 AM Narrative 11/15/2024 11:15 AM COLLEGE SPECIALIST PROCEDURE: CT ORBITS WWO CONTRAST, DATE/TIME OF EXAM: 11/15/2024 6:56 AM, LOCATION [facility] INDICATION: H05.89: Orbital lesion COMPARISON: [...] CONTRAST, DATE/TIME OF EXAM: 11/15/2024 6:56AM, LOCATION [facility] INDICATION: H05.89: Orbital lesion COMPARISON: [...] drafted by Krys Ledesma MD (vice president corporate communications). I, Conrado Dahl MD have personally reviewed and interpreted this examination/study. > Interpreting Provider: Conrado Dahl MD on 11/15/2024 11:15 AM Jhonny Quick MD CT ORDERABLES * CREATININE - POCT INTERFACED (11/15/2024 6:40 AM COLLEGE SPECIALIST) Creatinine POCT 0.58 0.30 - 1.30 mg/dL 11/15/2024 6:45 AM COLLEGE SPECIALIST [facility] eGFR >90 >=90 mL/min/1.7 3 m2 11/15/2024 6:45 AM COLLEGE SPECIALIST [facility] Blood BLOOD SPECIMEN / Unknown 11/15/2024 6:40 AM COLLEGE SPECIALIST 11/15/2024 6:45 AM COLLEGE SPECIALIST Jhonny Quick MD LAB - POINT OF CARE ORDERABLES [facility] [address] [place] [address], [facility] [phone] * EYE EXAM (09/14/2024) Anatomical Region Laterality Modality Other Narrative 09/14/2024 Ordered by an unspecified provider. Scanned Document SCANNING ONLY Care Teams School Child Care Attendant Relationship Specialty Start Date End Date Diane Cabrera MD [address] [place] [address] PCP - General Family Medicine 09/17/24
--- NOTE | 2025-02-05 16:04 | WPDSLEEPSTUD ---
Sleep Study Date of Study: 01/11/25 Ordering Provider: Diane Cabrera MD Interpreting Physician: Carli Brown DO Sleep Study Type: Polysomnogram Height: 1.6 m Weight: 74.843 kg Body Mass Index: 29.2 Neck Circumference (inches): 16 [place]: 15 Reason for Sleep Study Excessive daytime sleepiness Sleep History The patient is a 74-year-old female who had a sleep study ordered by her primary care physician for evaluation of sleep apnea. The patient denies awakening from sleep short of breath. She occasionally awakens at night with heartburn, belching, or cough. She frequently snores, and it is frequently loud enough that others complain. She frequently has trouble sleeping when she has a cold. She denies waking up gasping for air throughout the night. She occasionally has breathing problems at night observed by herself or others. She denies sweating excessively at night. She denies having heart palpitations or irregular heartbeats during the night. She occasionally falls asleep during the day, but rarely while driving. She denies sleep paralysis and cataplexy. She occasionally has trouble at work or school due to sleepiness. She frequently experiences vivid dreamlike scenes upon awakening or falling asleep. She rarely feels afraid of going to sleep. She occasionally has nightmares. She frequently remembers her dreams. She frequently has thoughts racing through her mind. She occasionally feels sad, depressed, and anxious. She occasionally has muscular tension. She rarely notices parts of her body jerk. She denies kicking during the night. She occasionally has crawling and aching feelings in her legs and occasionally has leg pain during the night. She occasionally awakens with morning jaw pain and constantly grinds her teeth during sleep. She is occasionally bothered by pain during the day and occasionally awakened by pain during the night. She occasionally wakes up feeling stiff in the morning. She occasionally wakes up with sore or achy muscles. She occasionally wakes up with pain in the neck, spine, and other joints. She goes to bed at midnight on both weekdays and weekends. It takes her 15 to 60 minutes to fall asleep. She wakes up twice throughout the night to urinate, and it can take her up to an hour to fall back asleep. She wakes up between 8 to 8:30 AM on both weekdays and weekends. She typically gets 7.5 hours of sleep per night. She will stay in bed for 15 minutes after waking up in the morning. She currently lives with her adult son. She denies consuming any caffeinated beverages within two hours of bedtime. She denies engaging in physical exercise before bedtime. She will read and watch television before falling asleep. She will take naps in the afternoon or the evening, and they are refreshing. She consumes an alcoholic beverage maybe once per month. She denies consuming caffeinated beverages throughout the day. She denies tobacco and recreational drug use. [facility] Past Medical History Medical History Adjustment disorder with anxious mood Family History Family History Mother Hypertension Family history of cardiovascular disease Cerebrovascular accident Family history of malignant neoplasm of breast in first degree relative Family history of congestive heart failure Father Asthma Family history of allergic disorder Sibling Family history of allergic disorder Other Family history of malignant neoplasm Social History Social History Smoking status: Never smoker Second hand tobacco smoke exposure: No Alcohol intake: current Alcohol use details: Occasional Substance use: never Substance use type: does not use Do You Feel Safe in your Home?: Yes Lack of Transportation: No Lack of Food: Never True Current Housing: I Have Housing Concerned About Future Housing: No Difficulty Paying Gas/Electric Bills: No Difficulty Paying for Meds: No Currently Unemployed: No Education: Bachelor's Degree Difficulty w/ Childcare or Family Care: No Living arrangements: with family Occupation/Education: retired Gender identity (if verbalized by the patient): Female Spiritual care concerns: No Agree to blood products: Yes Medications Home Medications ?Medication ?Instructions ?Recorded ?Confirmed ?Type levothyroxine 50 mcg tablet 50 mcg PO DAILY #90 tabs 11/01/24 12/27/24 Rx propranolol 10 mg tablet 30 mg (3 x 10 mg) PO Q12H #540 tabs 11/20/24 12/27/24 Rx atorvastatin 10 mg tablet 10 mg PO DAILY #90 tabs 12/26/24 12/27/24 Rx diclofenac sodium 75 mg 75 mg PO BID #180 tabs 12/27/24 12/27/24 Rx tablet,delayed release paroxetine HCl 12.5 mg 12.5 mg PO DAILY #90 tabs 01/04/25 Rx tablet,extended release 24 hr Sleep Procedure A full night polysomnogram using the [employer] SleepClear Advantage Collar multi-channel system recorded the standard physiologic parameters including EEG, EOG, submentalis EMG, anterior tibialis EMG, EKG, body position, nasal and oral airflow using nasal pressure sensor and thermistor.? Respiratory parameters of chest and abdominal movements were recorded with Respiratory Inductance Plethysmography belts. Oxygen saturation was recorded by pulse oximetry. Video monitoring was also performed. Sleep stages, periodic limb movements, and EEG arousals were scored in 30 second epochs according to the criteria of the AASM Scoring Manual. The Apnea-Hypopnea Index was calculated using [facility] guidelines for definition of hypopnea with 4% O2 desaturations while scoring respiratory events. Sleep Architecture The total recording time was 437.4 minutes.? The total sleep time was 287.5 minutes. Sleep latency was 23.6 minutes. REM latency was 229.5 minutes. Sleep efficiency was 65.7%. The patient had 38 awakenings for an awakening index of 7.9. Wake after sleep onset time was 126.0 minutes. The patient spent 12.0 minutes, 4.2% of total sleep time in Stage N1. The patient spent 168.0 minutes, 58.4% in Stage N2. The patient spent 82.5 minutes, 28.7% in Stage N3. The patient spent 25.0 minutes, 8.7% in Stage REM sleep. Respiratory Analysis The patient had 18 hypopneas, 13 obstructive apneas and 28 central apneas for an overall Apnea Hypopnea Index of 12.3. The REM Apnea Hypopnea Index was 36.0. The NREM Apnea Hypopnea Index was 10.7. The patient had a Central Apnea Hypopnea Index of 5.8, which is elevated (normal < 5). There were 1 Respiratory Effort Related Arousals resulting in a RERA index of 0.2 events per hour. The Respiratory Disturbance Index is 16.7 events per hour. There was no evidence of Edgar-Cole Respirations. Arousals There were 217 total arousals for an arousal index of 45.3. There were 59 spontaneous arousals for an index of 12.3. There were 26 arousals due to respiratory events for an index of 5.4. There were 113 arousals due to periodic limb movements for an index of 23.6.? There were 20 arousals due to isolated limb movements for an index of 4.2. Periodic Limb Movements The patient had 40 isolated limb movements with an index of 8.3. The patient had 362 periodic limb movements with an index of 75.5, which is elevated (normal < 15). Patient had a total of 402 limb movements with a total limb movement index of 83.9. Oximetry Data The patient had an average oxygen saturation of 92.4% in sleep with a minimum oxygen saturation of 85.0% and a maximum oxygen saturation of 98.0%. The patient had 29 oxygen desaturations that were 4% or greater resulting in an Oxygen Desaturation Index of 6.1.? The patient spent 2.4 minutes, 0.6% of total sleep time with an oxygen saturation below 88%. Snoring Profile Mild snoring was present throughout the study. Cardiac Profile The EKG showed normal sinus rhythm with multi-focal PVCs. The patient had an average pulse rate of 59.0 bpm with a minimum pulse of rate of 45.0 bpm and a maximum pulse rate of 90.0 bpm.? EEG Profile No signs of seizure activity seen. Assessment and Plan Assessment and Plan (1) NAIN (obstructive sleep apnea): Code(s): G47.33 - Obstructive sleep apnea (adult) (pediatric) Status: Acute Assessment and Plan: The patient had an overall AHI of 12.3 with desaturation down to 85%. This is consistent with mild sleep apnea. Due to the patient's anxiety, she qualifies for treatment. The patient had a central apnea index of 5.8, which is elevated (normal < 5). Due to the patient's elevated central apnea index, she is not an ideal candidate for AutoPAP. AutoPAP can increase the frequency and severity of central apneas. I recommend that the patient have a CPAP Titration study with the use of a hypnotic (Lunesta 2-3 mg or Ambien 5-10 mg) to ensure we obtain enough sleep data and find an optimal pressure setting. (2) PLMD (periodic limb movement disorder): Code(s): G47.61 - Periodic limb movement disorder Status: Acute Assessment and Plan: The patient had a significant number of limb movements during the study with the majority being periodic in nature. Approximately 1/3 of the periodic limb movements caused arousals in the patient's sleep. The patient's sleep history does not strongly suggest Restless Leg Syndrome. I recommend that the patient have a serum ferritin drawn for evaluation of iron deficiency anemia. If the patient has a serum ferritin less than 75 ng/mL, I recommend starting a daily iron supplement and a Vitamin C supplement for better absorption. If the serum ferritin is greater than 75 ng/mL, I recommend starting a dopamine agonist and titrating the dose until symptoms resolve. There are nonpharmacological methods to treat limb movements including daily exercise, stretching calf muscles before bed, avoiding excessive amounts of caffeine and alcohol, vitamin B supplementation, magnesium lotion massaged into legs before bed, and use of a weighted blanket. Data The data obtained during this sleep study is adequate for interpretation. Certification This sleep study has been reviewed by a board certified sleep medicine physician.
[2025-02-05 16:05] VITALS: BMI 29.2
== END ==
LOC: ANHCSM 02-05 09:35
PROVIDERS: PCP Family Medicine; Visit Provider Family Medicine
DX: G47.10 Hypersomnia, unspecified (principal); R06.83 Snoring; G47.33 Obstructive sleep apnea (adult) (pediatric); G47.61 Periodic limb movement disorder
CPT/HCPCS: 95810

== ENCOUNTER 2025-01-18 13:30 | Outpatient (CLI) | payer MEDICARE, OTHER, SELFPAY ==
--- NOTE | ~2025-01-18 | DEXA_ITS ---
Bone Density Report Name: SENTHIL SANCHEZ Age: 74 Sex: Female Ethnicity: White Date of : 1950 Indication: postmenopausal; screening for osteoporosis; Referring Provider: JEROD ABREU Study: Bone densitometry was performed. Exam Date: January 18, 2025 Accession number: [id number] Bone Density: Region BMD T-score Z-score Classification AP Spine(L1-L4) 1.075 0.3 2.6 Normal Femoral Neck (Left) 0.726 -1.1 0.9 Osteopenia Total Hip (Left) 0.969 0.2 1.9 Normal Femoral Neck (Right) 0.722 -1.1 0.9 Osteopenia Total Hip (Right) 0.958 0.1 1.8 Normal Total Hip Mean 0.964 0.2 1.9 Normal World Health Organization criteria for BMD impression classify patients as: Normal (T-score at or above -1.0), Osteopenia (T-score between -1.0 and -2.5), or Osteoporosis (T-score at or below -2.5). 10-year Fracture Risk(1): Major Osteoporotic Fracture 9.4% Hip Fracture 1.3% Reported Risk Factors: [place] (), Neck BMD=0.726, BMI=30.7 (1) FRAX(R) Version 3.08. Fracture probability calculated for an untreated patient. Fracture probability may be lower if the patient has received treatment. Previous Exams: Region Exam Age BMD T-score BMD Change BMD Change Date g/cm2 vs Baseline vs Previous Total Hip(Left) 01/18/2025 74 0.969 0.2 0.008 (0.8%) 0.014 (1.5%)# 09/24/2021 71 0.955 0.1 -0.006 (-0.6%) 0.001 (0.1%) 12/27/2018 68 0.954 0.1 -0.007 (-0.7%) 0.002 (0.2%) 12/05/2015 65 0.952 0.1 -0.009 (-0.9%) -0.009 (-0.9%) 08/08/2012 62 0.961 0.2 Total Hip(Right) 01/18/2025 74 0.958 0.1 0.021 (2.3%) 0.017 (1.8%)# 09/24/2021 71 0.941 0.0 0.004 (0.4%)# -0.035 (-3.5%) 12/27/2018 68 0.976 0.3 0.039 (4.1%)# 0.003 (0.3%) 12/05/2015 65 0.973 0.3 0.036 (3.8%)# 0.036 (3.8%)# 08/08/2012 62 0.937 0.0 *Denotes significance at 95% confidence level, LSC for Total Hip = 0.027 g/cm2 # Denotes dissimilar scan types or analysis methods Clinical Information Provided by Patient: Has used the following medications: Vitamin D, Calcium Patient maximum height was 62 Menopause Age: 53 Onset of menses at age 14 Number of children 2 Impression: The patient has low bone mass, based on the Left Femoral Neck T-score. The patient has an estimated ten-year risk of hip fracture of 1.3% and an estimated ten-year risk of major fracture of 9.4%, based on the WHO FRAX algorithm. No significant bone loss was observed. Discussion: BONE DENSITY IS LOW AT ONE OR MORE SKELETAL SITES. This patient's lowest T-score is low at one or more skeletal sites. It meets the World Health Organization's (WHO) criteria for ?low bone mass? (T-score between -1.0 and -2.5). The patient's 10-year risk of fracture as calculated by FRAX is less than the threshold where pharmacological therapy is recommended by the National Osteoporosis Foundation (NOF). However, all treatment decisions require clinical judgment and consideration of individual patient factors, including patient preferences, comorbidities, previous drug use, risk factors not captured in the FRAX model (e.g., frailty, falls, vitamin D deficiency, increased bone turnover, interval significant decline in bone density) and possible under or overestimation of fracture risk by FRAX. The patient should follow a healthful lifestyle (good nutrition with adequate calcium and vitamin D, and appropriate weight-bearing exercise). Follow-Up: Consider repeating this study in 2 to 3 years to reassess this patient's status, or sooner if there is some new clinical indication. Reported by: SAVANNA on 01/21/2025 8:02:00 AM. Reviewed, dictated and finalized at location AJean Paul MASTERSON
--- NOTE | ~2025-01-18 | MM_ITS ---
EXAMINATION: MM screening [facility] BI w jaime HISTORY: Screening TECHNIQUE: Craniocaudal and mediolateral oblique 3-D tomosynthesis images were obtained and synthetic 2-D images were generated. CAD analysis was submitted and interpreted. COMPARISON: Comparison to multiple prior studies sequentially, with oldest reviewed study dated 01/23. BREAST PARENCHYMAL COMPOSITION: Not dense: There are scattered areas of fibroglandular density. FINDINGS: There is no evidence of suspicious mass, calcification, or architectural distortion to sugg est malignancy in either breast. There has been no suspicious interval change. IMPRESSION: 1. No mammographic evidence of malignancy. 2. Recommend routine screening mammography in one year. BI-RADS Category 1: Negative Reviewed, dictated and finalized at location L. AT TANKER DRIVER
--- OUTSIDE RECORDS SUMMARY | 2025-01-18 13:42 | XMS_ITS | Referral Summary ---
Author Organization [facility] Address [address] [place] [address] Care Team Providers Care Food Taster Name Role Phone Diane Cabrera MD Primary Care Provider [phone] [phone] Source Comments [facility],non-owned Affiliates and Associated Physician Practices is amultiple site organization consisting of ambulatory clinics and hospital sitesin [place], [place], [place] and [place]. This disclosure is being madepursuant to the Care Everywhere program and may not contain all information available regarding this patient. Last updated 18.[facility] Encounters Date Type Department Care Team Description 01/09/2025 Telephone [facility] [place] [address] Raven Salas APRN-LINDA Follow-up 01/09/2025 11:00 AM FLATLOCK SEWING MACHINE OPERATOR Office Visit [facility] [address] [place] [address] Raven Salas APRN-LINDA Orbital lesion (Primary Dx) 11/15/2024 Travel 11/15/2024 6:33 AM FLATLOCK SEWING MACHINE OPERATOR - 11/15/2024 11:59 PM [facility] Hospital Encounter [facility] SCAN [address] [place] [address] Jhonny Quick MD Discharge Disposition: Home or Self Care from Last 3 Months Allergies No known [...] ORBITS WWO CONTRAST Routine 11/15/2024 6:55 AM FLATLOCK SEWING MACHINE OPERATOR Orbital lesion CREATININE - POCT INTERFACED Routine 11/15/2024 6:40 AM FLATLOCK SEWING MACHINE OPERATOR from Last 3 Months Results * CT Orbits Wwo Contrast (11/15/2024 6:55 AM FLATLOCK SEWING MACHINE OPERATOR) Anatomical Region Laterality Modality Head Computed Tomogra phy 11/15/2024 7:05 AM FLATLOCK SEWING MACHINE OPERATOR Impressions 11/15/2024 11:15 AM FLATLOCK SEWING MACHINE OPERATOR IMPRESSION: 1.Rim-enhancing fluid collection/cystic lesion measuring up to 1.3 x 0.9 x 1.1 cm adjacent to the left lacrimal gland which may represent an inflamed left lacrimal gland cyst or abscess. 2.Mild enlargement and increased enhancement of left lacrimal gland compared to the right lacrimal gland which may represent inflammation of left lacrimal gland. The report was drafted by Krys Ledesma MD (residential caregiver). I, Conrado Dahl MD have personally reviewed and interpreted this examination/study. > Interpreting Provider: Conrado Dahl MD on 11/15/2024 11:15 AM Narrative 11/15/2024 11:15 AM FLATLOCK SEWING MACHINE OPERATOR PROCEDURE: CT ORBITS WWO CONTRAST, DATE/TIME OF EXAM: 11/15/2024 6:56 AM, LOCATION [facility] INDICATION: H05.89: Orbital lesion COMPARISON: None. TECHNICAL: [...] CONTRAST, DATE/TIME OF EXAM: 11/15/2024 6:56AM, LOCATION [facility] INDICATION: H05.89: Orbital lesion COMPARISON: None. TECHNICAL: [...] was drafted by Krys Ledesma MD (residential caregiver). I, Conrado Dahl MD have personally reviewed and interpreted this examination/study. > Interpreting Provider: Conrado Dahl MD on 11/15/2024 11:15 AM Jhonny Quick MD CT ORDERABLES * CREATININE - POCT INTERFACED (11/15/2024 6:40 AM FLATLOCK SEWING MACHINE OPERATOR) Creatinine POCT 0.58 0.30 - 1.30 mg/dL 11/15/2024 6:45 AM FLATLOCK SEWING MACHINE OPERATOR [facility] eGFR >90 >=90 mL/min/1.7 3 m2 11/15/2024 6:45 AM FLATLOCK SEWING MACHINE OPERATOR [facility] Blood BLOOD SPECIMEN / Unknown 11/15/2024 6:40 AM FLATLOCK SEWING MACHINE OPERATOR 11/15/2024 6:45 AM FLATLOCK SEWING MACHINE OPERATOR Jhonny Quick MD LAB - POINT OF CARE ORDERABLES [facility] [address] [place] [address], [facility] [phone] from Last 3 Months Care Teams Food Taster Relationship Specialty Start Date End Date Diane Cabrera MD [address] [place] [phone] PCP - General Family Medicine 09/17/24
--- OUTSIDE RECORDS SUMMARY | 2025-01-18 13:42 | XMS_ITS | Clinical Summary ---
Author Organization [facility] Care Team Providers Care Director Pharmacy Services Name Role Phone Unavailable Primary Care Provider Unavailabl e Social History Tobacco Use Types Packs/Day Years Used Date Smoking Tobacco: Never Assessed Comments Unknown Sex and Gender Information Value Date Recorded Sex Assigned at Not on file Legal Sex Female 9:30 AM RISK MANAGEMENT CONSULTANT Gender Identity Not on file Sexual Orientation [...]
--- OUTSIDE RECORDS SUMMARY | 2025-01-18 13:42 | XMS_ITS | Clinical Summary ---
Author Organization [facility] [employer] Address [address] [place] [address] Care Team Providers Care Biology Professor Name Role Phone Diane Cabrera MD Primary Care Provider [phone] [phone] Source Comments [facility] [employer],non-owned Affiliates and Associated Physician Practices is amultiple site organization consisting of ambulatory clinics and hospital sitesin [place], [place], [place] and [place]. This disclosure is being madepursuant to the Care Everywhere program and may not contain all information available regarding this patient. Last updated 18.[facility] [employer] Allergies No known active allergies Medications * [...] Department Care Team Description 01/09/2025 11:00 AM SLUDGE MILL OPERATOR Office Visit [facility] [address] [place] [address] [phone] Raven Salas P, DIRECTOR OF ENTERPRISE ARCHITECTURE-CHIEF CONTROLLER Orbital lesion (Primary Dx) 01/09/2025 Telephone [facility] [address] [facility] [place] [address] Raven Salas, DIRECTOR OF ENTERPRISE ARCHITECTURE-CHIEF CONTROLLER Follow-up 11/15/2024 6:33 AM SLUDGE MILL OPERATOR - 11/15/2024 11:59 PM SLUDGE MILL OPERATOR Hospital Encounter [facility] CAT SCAN [address] [place] [address] Jhonny Quick MD Discharge Disposition: Home or Self Care 11/15/2024 Travel from Last 3 Months Social History [...] VACCINE (1 of 2) 2001 COVID-19 VACCINE (2023-2 5 season) 2024 INFLUENZA VACCINE (#1) 2024 [...] ORBITS WWO CONTRAST Routine 11/15/2024 6:55 AM SLUDGE MILL OPERATOR Orbital lesion CREATININE - POCT INTERFACED Routine 11/15/2024 6:40 AM SLUDGE MILL OPERATOR from Last 3 Months Results * CT Orbits Wwo Contrast (11/15/2024 6:55 AM SLUDGE MILL OPERATOR) Anatomical Region Laterality Modality Head Computed Tomogra phy 11/15/2024 7:05 AM SLUDGE MILL OPERATOR Impressions 11/15/2024 11:15 AM SLUDGE MILL OPERATOR IMPRESSION: 1.Rim-enhancing fluid collection/cystic lesion measuring up to 1.3 x 0.9 x 1.1 cm adjacent to the left lacrimal gland which may represent an inflamed left lacrimal gland cyst or abscess. 2.Mild enlargement and increased enhancement of left lacrimal gland compared to the right lacrimal gland which may represent inflammation of left lacrimal gland. The report was drafted by Krys Ledesma MD (operations vice president). I, Conrado Dahl MD have personally reviewed and interpreted this examination/study. > Interpreting Provider: Conrado Dahl MD on 11/15/2024 11:15 AM Narrative 11/15/2024 11:15 AM SLUDGE MILL OPERATOR PROCEDURE: CT ORBITS WWO CONTRAST, DATE/TIME OF EXAM: 11/15/2024 6:56 AM, LOCATION [facility] INDICATION: H05.89: Orbital lesion COMPARISON: None. TECHNICAL: [...] is normal in attenuation. Procedure Note Conrado aDhl MD - 11/15/2024 PROCEDURE: CT ORBITS WWO CONTRAST, DATE/TIME OF EXAM: 11/15/2024 6:56AM, LOCATION [facility] INDICATION: H05.89: Orbital lesion COMPARISON: None. TECHNICAL: [...] report was drafted by Krys Ledesma MD (operations vice president). I, Conrado Dahl MD have personally reviewed and interpreted this examination/study. > Interpreting Provider: Conrado Dahl MD on 11/15/2024 11:15 AM Jhonny Quick MD CT ORDERABLES * CREATININE - POCT INTERFACED (11/15/2024 6:40 AM SLUDGE MILL OPERATOR) Creatinine POCT 0.58 0.30 - 1.30 mg/dL 11/15/2024 6:45 AM SLUDGE MILL OPERATOR [facility] eGFR >90 >=90 mL/min/1.7 3 m2 11/15/2024 6:45 AM SLUDGE MILL OPERATOR [facility] Blood BLOOD SPECIMEN / Unknown 11/15/2024 6:40 AM SLUDGE MILL OPERATOR 11/15/2024 6:45 AM SLUDGE MILL OPERATOR Jhonny Quick MD LAB - POINT OF CARE ORDERABLES [facility] [address] [place] [address], [facility] [phone] from Last 3 Months Care Teams Biology Professor Relationship Specialty Start Date End Date Diane Cabrera MD [address] [place], [place] [address] PCP - General Family Medicine 09/17/24
--- OUTSIDE RECORDS SUMMARY | 2025-01-18 13:42 | XMS_ITS | Patient Health Summary ---
Author Organization [facility] Address [address] [place] [address] Care Team Providers Care Geotechnical Intern Name Role Phone Diane Cabrera MD Primary Care Provider [phone] Note from [facility],non-owned Affiliates and Associated Physician Practices is amultiple site organization consisting of ambulatory clinics and hospital sitesin [place], [place], [place] and [place]. This disclosure is being madepursuant to the Care Everywhere program and may not contain all information available regarding this patient. Last updated 18.[facility] Allergies No known active allergies Medications [...] CT Orbits Wwo Contrast (11/15/2024 6:55 AM US ADMINISTRATIVE LAW JUDGE) Anatomical Region Laterality Modality Head Computed Tomogra phy 11/15/2024 7:05 AM US ADMINISTRATIVE LAW JUDGE Impressions 11/15/2024 11:15 AM US ADMINISTRATIVE LAW JUDGE IMPRESSION: 1.Rim-enhancing fluid collection/cystic lesion measuring up to 1.3 x 0.9 x 1.1 cm adjacent to the left lacrimal gland which may represent an inflamed left lacrimal gland cyst or abscess. 2.Mild enlargement and increased enhancement of left lacrimal gland compared to the right lacrimal gland which may represent inflammation of left lacrimal gland. The report was drafted by Krys Ledesma MD (residential door unit installer). I, Conrado Dahl MD have personally reviewed and interpreted this examination/study. > Interpreting Provider: Conrado Dahl MD on 11/15/2024 11:15 AM Narrative 11/15/2024 11:15 AM US ADMINISTRATIVE LAW JUDGE PROCEDURE: CT ORBITS WWO CONTRAST, DATE/TIME OF EXAM: 11/15/2024 6:56 AM, LOCATION [facility] INDICATION: H05.89: Orbital lesion COMPARISON: [...] CONTRAST, DATE/TIME OF EXAM: 11/15/2024 6:56AM, LOCATION [facility] INDICATION: H05.89: Orbital lesion COMPARISON: [...] was drafted by Krys Ledesma MD (residential door unit installer). I, Conrado Dahl MD have personally reviewed and interpreted this examination/study. > Interpreting Provider: Conrado Dahl MD on 11/15/2024 11:15 AM Jhonny Quick MD CT ORDERABLES * CREATININE - POCT INTERFACED (11/15/2024 6:40 AM US ADMINISTRATIVE LAW JUDGE) Creatinine POCT 0.58 0.30 - 1.30 mg/dL 11/15/2024 6:45 AM US ADMINISTRATIVE LAW JUDGE [facility] eGFR >90 >=90 mL/min/1.7 3 m2 11/15/2024 6:45 AM US ADMINISTRATIVE LAW JUDGE [facility] Blood BLOOD SPECIMEN / Unknown 11/15/2024 6:40 AM US ADMINISTRATIVE LAW JUDGE 11/15/2024 6:45 AM US ADMINISTRATIVE LAW JUDGE Jhonny Quick MD LAB - POINT OF CARE ORDERABLES [facility] [address] [place] [address], [facility] [phone] * EYE EXAM (09/14/2024) Anatomical Region Laterality Modality Other Narrative 09/14/2024 Ordered by an unspecified provider. Scanned Document SCANNING ONLY Care Teams Geotechnical Intern Relationship Specialty Start Date End Date Diane Cabrera MD [address] [place] [address] PCP - General Family Medicine 09/17/24
== END 2025-01-18 13:31 | disposition home or self-care (01) ==
LOC: ANHIMG 13:33
PROVIDERS: PCP Family Medicine; Visit Provider Family Medicine
DX: Z12.31 Encounter for screening mammogram for malignant neoplasm of breast (principal); M85.89 Other specified disorders of bone density and structure, multiple sites; Z78.0 Asymptomatic menopausal state; Z13.820 Encounter for screening for osteoporosis
CPT/HCPCS: 77063; 77067; 77080

== ENCOUNTER 2025-03-27 09:51 | Outpatient (CLI) | payer MEDICARE, OTHER, SELFPAY ==
--- OUTSIDE RECORDS SUMMARY | 2025-03-27 10:49 | XMS_ITS | Clinical Summary ---
Author Organization [facility] Care Team Providers Care Food And Beverage Coordinator Name Role Phone Unavailable Primary Care Provider Unavailabl e Social History Tobacco Use Types Packs/Day Years Used Date Smoking Tobacco: Never Assessed Comments Unknown Sex and Gender Information Value Date Recorded Sex Assigned at Not on file Legal Sex Female 9:30 AM [employer] Gender Identity Not on file Sexual Orientation [...]
--- OUTSIDE RECORDS SUMMARY | 2025-03-27 10:49 | XMS_ITS | Clinical Summary ---
Author Organization [facility] Address [address] [place] [address] Care Team Providers Care Intranet Developer Name Role Phone Diane Cabrera MD Primary Care Provider [phone] Source Comments [facility],non-owned Affiliates and Associated Physician Practices is amultiple site organization consisting of ambulatory clinics and hospital sitesin [place], [place], [place] and [place]. This disclosure is being madepursuant to the Care Everywhere program and may not contain all information available regarding this patient. Last updated 18.[facility] Allergies No known active allergies Medications * Be aware that medications may not be up to date on this document. Alwaysverify current medications with the patient. atorvastatin (Lipitor) 10 MG tablet Take 1 (one) tablet by mouth once daily 4 Active levothyroxine (Synthroid) 50 MCG tablet Take 1 (one) tablet by mouth once daily 4 Active PARoxetine CR 24hr (Paxil-Cr) 12.5 MG tablet Take 1 (one) tablet by mouth once daily 4 Active propranolol (Inderal) 10 MG tablet TAKE 3 TABLETS BY MOUTH EVERY 12 HOURS 4 Active diclofenac sodium EC (Voltaren) 75 MG tablet Take 1 (one) tablet by mouth 2 times daily 5 Active multivitamin daily tablet Take 1 (one) tablet by mouth daily with food Active calcium 500 mg tablet Take 1 (one) tablet by mouth 2 times daily with morning and evening meal Active vitamin D3 (Cholecalcifero l) 10 MCG (400 UNIT) tablet Take 1 (one) tablet by mouth once daily Active Multiple Vitamins-Minera ls (PreserVision AREDS 2) capsule Take 2 (two) capsules by mouth 2 times daily Active eszopiclone (Lunesta) 3 MG tablet TAKE 1/2 -1 TABLET BY MOUTH PRIOR TO SLEEP STUDY 5 03/20/20 25 Discontinu ed(List Clean-Up) meloxicam (Mobic) 15 MG tablet Take 1 (one) tablet by mouth once daily 4 03/20/20 25 Discontinu ed(List Clean-Up) Active Problems No known active problems Encounters Date Type Department Care Team Description 02/27/2025 Telephone [facility] - Ophthalmology [address] [place] [phone] Raven Salas APRN-CNP Surgery Scheduling 01/09/2025 11:00 AM GEOMAGNETIST Office Visit [facility] - Ophthalmology [address] [place] [phone] Raven Salas APRN-CNP Orbital lesion (Primary Dx) 01/09/2025 Telephone [facility] - Ophthalmology [address] [place] [phone] Raven Salas APRN-CNP Follow-up from Last 3 Months Social History Tobacco Use Types Packs/Day Years Used Date Smoking Tobacco: Never Smokeless Tobacco: Never Tobacco Cessation:Counseling Given: Not Answered Alcohol Use Standard Drinks/Week Comments Yes 0 (1 standard drink = 0.6 oz pur e alcohol) rare Comments Unknown Sex and Gender Information Value Date Recorded Sex Assigned at Not on file Legal Sex Female 1:39 PM CDT Gender Identity Not on file Sexual Orientation Not on file Last Filed Vital Signs Vital Sign Reading Time Taken Comments Blood Pressure - - Pulse - - Temperature - - Respiratory Rate - - Oxygen Saturation - - Inhaled Oxygen Concentration - - Weight 73.9 kg (163 lb) 03/20/2025 9:50 AM CDT Height 160 cm (5' 3 ) 03/20/2025 9:50 AM CDT Body Mass Index 28.87 03/20/2025 9:50 AM CDT Plan of Treatment Upcoming Encounters Date Type Department Care Team (Latest Contact Info) Description 04/01/2025 11:05 AM CDT Hospital Encounter [facility]AMB SURGERY [address] [place] [phone] Rosemary Cary MD [address] [place] [address] [place] [phone] Surgery General 04/01/2025 11:05 AM CDT Anesthesia Event [facility]TNA[facility]AMB SURGERY [address] [place] [phone] Savana Hutton, ASSISTED LIVING ASSOCIATE-SPEAKER WIRER [address] [facility], [place] [place] [address] 04/01/2025 11:05 AM CDT - 04/01/2025 12:25 PM CDT Surgery [facility] OR CHETNA/AMB SURGERY [address] [place] [phone] Rosemary Cary MD [address] [place] [address] [place] [id number] Left orbitotomy with excisional biopsy, LEFT EYE 04/09/2025 10:30 AM CDT Office Visit [facility] - Ophthalmology [address] [place] [phone] Raven Salas, ASSISTED LIVING ASSOCIATE-SPEAKER WIRER [address] [place] [address] [place] [phone] Scheduled Procedures Name Priority Associated Diagnoses Date/Ti me ORBITOTOMY Orbital lesion 04/01/2025 11:05 AM CDT Health Maintenance Due Date Last Done Comments [...] VACCINE (1 of 2) 2001 COVID-19 VACCINE (1 - 2023-2 5 season) 2024 DEPRESSION SCREENING 11/28/2024 INFLUENZA VACCINE (Season Ended) 2025 Respiratory Syncytial Virus (RSV) Vaccine Pt: or [...] to complete this topic MENINGOCOCCAL (Group B) VACC INE SHARED DECISION-MAKING Aged Out No longer eligibl e based on patient's age to complete this topic MENINGOCOCCAL GROUPS A/C/Y/W VACCINE Aged Out No longer eligible b ased on patient's age to complete this topic Insurance MEDICARE [facility] [place] Care Teams Intranet Developer Relationship Specialty Start Date End Date Diane Cabrera MD [address] [place] [phone] PCP - General Family Medicine 09/17/24
[2025-04-25 11:37] VITALS: BMI 28.8
--- NOTE | 2025-04-25 11:37 | P.SLEEP_ITS ---
Sleep Study Date of Study: 03/27/25 Ordering Provider: Diane Cabrera MD Interpreting Physician: Carli Brown DO Sleep Study Type: CPAP Titration Height: 1.6 m Weight: 73.936 kg Body Mass Index: 28.8 Neck Circumference (inches): 15 Stratton: 15 Reason for Sleep Study Polysomnogram on 01/11/2025 showed an overall AHI of 12.3, DMITRI of 5.8 and desaturation down to 85%. Sleep History The patient is a 74-year-old female who had a sleep study ordered by her primary care physician for evaluation of sleep apnea. The patient denies awakening from sleep short of breath. She occasionally awakens at night with heartburn, belching, or cough. She frequently snores, and it is frequently loud enough that others complain. She frequently has trouble sleeping when she has a cold. She denies waking up gasping for air throughout the night. She occasionally has breathing problems at night observed by herself or others. She denies sweating excessively at night. She denies having heart palpitations or irregular hear tbeats during the night. She occasionally falls asleep during the day, but rarely while driving. She denies sleep paralysis and cataplexy. She occasionally has trouble at work or school due to sleepiness. She frequently experiences vivid dreamlike scenes upon awakening or falling asleep. She rarely feels afraid of going to sleep. She occasionally has nightmares. She frequently remembers her dreams. She frequently has thoughts racing through her mind. She occasionally feels sad, depressed, and anxious. She occasionally has muscular tension. She rarely notices parts of her body jerk. She denies kicking during the night. She occasionally has crawling and aching feelings in her legs and occasionally has leg pain during the night. She occasionally awakens with morning jaw pain and constantly grinds her teeth during sleep. She is occasionally bothered by pain during the day and occasionally awakened by pain during the night. She occasionally wakes up feeling stiff in the morning. She occasionally wakes up with sore or achy muscles. She occasionally wakes up with pain in the neck, spine, and other joints. She goes to bed at midnight on both weekdays and weekends. It takes her 15 to 60 minutes to fall asleep. She wakes up twice throughout the night to urinate, and it can take her up to an hour to fall back asleep. She wakes up between 8 to 8:30 AM on both weekdays and weekends. She typically gets 7.5 hours of sleep per night. She will stay in bed for 15 minutes after waking up in the morning. She currently lives with her adult son. She denies consuming any caffeinated beverages within two hours of bedtime. She denies engaging in physical exercise before bedtime. She will read and watch television before falling asleep. She will take naps in the afternoon or the evening, and they are refreshing. She consumes an alcoholic beverage maybe once per month. She denies consuming caffeinated beverages throughout the day. She denies tobacco and recreational drug use. FORMERLY [facility] Past Medical History Medical History Adjustment disorder with anxious mood Family History Family History Mother Hypertension Family history of cardiovascular disease Cerebrovascular accident Family history of malignant neoplasm of breast in first degree relative Family history of congestive heart failure Father Asthma Family history of allergic disorder Sibling Family history of allergic disorder Other Family history of malignant neoplasm Social History Social History Smoking status: Never smoker Second hand tobacco smoke exposure: No Alcohol intake: current Alcohol use details: Occasional Substance use: never Substance use type: does not use Do You Feel Safe in your Home?: Yes Lack of Transportation: No Lack of Food: Never True Current Housing: I Have Housing Concerned About Future Housing: No Difficulty Paying Gas/Electric Bills: No Difficulty Paying for Meds: No Currently Unemployed: No Education: Bachelor's Degree Difficulty w/ Childcare or Family Care: No Living arrangements: with family Occupation/Education: retired Gender identity (if verbalized by the patient): Female Spiritual care concerns: No Agree to blood products: Yes Medications Home Medications ?Medication ?Instructions ?Recorded ?Confirmed ?Type levothyroxine 50 mcg tablet 50 mcg PO DAILY #90 tabs 11/01/24 12/27/24 Rx atorvastatin 10 mg tablet 10 mg PO DAILY #90 tabs 12/26/24 12/27/24 Rx diclofenac sodium 75 mg 75 mg PO BID #180 tabs 12/27/24 12/27/24 Rx tablet,delayed release paroxetine HCl 12.5 mg 12.5 mg PO DAILY #90 tabs 01/04/25 Rx tablet,extended release 24 hr eszopiclone 3 mg tablet (Lunesta) See Rx Instructions .Route 02/05/25 Rx .COMPLEX #1 tablet propranolol 10 mg tablet 30 mg (3 x 10 mg) PO Q12H #540 tabs 02/20/25 Rx Sleep Procedure A full night CPAP Titration using the Bi[employer] Medical multi-channel system recorded the standard physiologic parameters including EEG, EOG, submentalis EMG, anterior tibialis EMG, EKG, body position, nasal and oral airflow using nasal pressure sensor and thermistor.? Respiratory parameters of chest and abdominal movements were recorded with Respiratory Inductance Plethysmography belts. Oxygen saturation was recorded by pulse oximetry. Video monitoring was also performed. Sleep stages, periodic limb movements, and EEG arousals were scored in 30 second epochs according to the criteria of the AASM Scoring Manual. The Apnea-Hypopnea Index was calculated using CMS guidelines for definition of hypopnea with 4% O2 desaturations while scoring respiratory events. Sleep Architecture The total recording time was 465.4 minutes.? The total sleep time was 434.0 minutes. Sleep latency was 3.4 minutes. REM latency was 81.5 minutes. Sleep efficiency was 93.2%. The patient had 20 awakenings for an awakening index of 2.8. Wake after Sleep Onset time was 28.0 minutes. The patient spent 11.5 minutes, 2.6% of total sleep time in Stage N1. The patient spent 188.0 minutes, 43.3% in Stage N2. The patient spent 128.0 minutes, 29.5% in Stage N3. The patient spent 106.5 minutes, 24.5% in Stage REM. Respiratory Analysis The patient had 4 hypopneas, 22 mixed apneas, and 62 central apneas for an overall Apnea Hypopnea Index of 12.2 events per hour. The REM Apnea Hypopnea Index was 6.2. The NREM Apnea Hypopnea Index was 14.1. The patient had a Central Apnea Hypopnea Index of 8.6. There was no evidence of Edgar-Cole Respirations. The patient was started on CPAP 5 cm H2O and titrated to CPAP 9 cm H2O due to central and mixed apneas. The patient was able to fall asleep starting on CPAP 5 cm H2O. The patient was able to achieve REM sleep starting on CPAP 7 cm H2O with EPR of 2. The lowest residual AHI the patient was able to achieve during the study was 6.6 on 7 cm H2O. On CPAP 7 cm H2O, the patient spent 110 minutes in NREM and 80 minutes in REM with 13 central apneas, 5 mixed apneas and 3 hypopneas, resulting in an AHI of 6.6. The patient had a sleep efficiency of 99.2% on this pressure setting. Arousals There were 100 total arousals for an arousal index of 13.8. There were 11 spontaneous arousals for an index of 1.5. ?There were 22 arousals due to respiratory events for an index of 3.0. There were 56 arousals due to periodic limb movements for an index of 7.7.? There were 9 arousals due to isolated limb movements for an index of 1.2. Periodic Limb Movements The patient had 39 isolated limb movements with an index of 5.4. The patient had 529 periodic limb movements with index of 73.1, which is elevated (normal < 15). Patient had a total of 568 limb movements with a total limb movement index of 78.5. Oximetry Data The patient had an average oxygen saturation of 94.3% in sleep with a minimum oxygen saturation of 90.0% and a maximum oxygen saturation of 98.0%. The patient had 12 oxygen desaturations that were 4% or greater resulting in an Oxygen Desaturation Index of 1.7.? The patient spent 0 minutes of total sleep time with an oxygen saturation below 88%. Snoring Profile Snores were rarely present throughout the study. Cardiac Profile The EKG showed normal sinus rhythm with occasional PVCs. The patient had an average pulse rate of 50.5 bpm with a minimum pulse rate of 45.0 bpm and a maximum pulse rate of 62.0 bpm. ? EEG Profile No signs of seizure activity seen. Assessment and Plan Assessment and Plan (1) Treatment-emergent central sleep apnea: Code(s): T81.89XA - Other complications of procedures, not elsewhere classified, initial encounter; G47.33 - Obstructive sleep apnea (adult) (pediatric); G47.37 - Central sleep apnea in conditions classified elsewhere Status: Acute Assessment and Plan: The patient was started on CPAP 5 cm H2O and titrated to CPAP 9 cm H2O due to central and mixed apneas. The majority of the patient's respiratory events were central apneas which can occur when a patient is initially started on CPAP. The majority of the central apneas should resolve on its own within the first 90 days of CPAP therapy. I recommend that the patient be prescribed CPAP 7 cm H2O, size medium Resmed AirTouch F20 full face mask, CPAP filters/tubing and heated humidity. If the patient's compliance data after 3 months shows an elevated AHI >5 with the majority being central apneas, the patient will need an ASV Titration. On the patient's polysomnogram in December 2024, she had a central apnea index of 5.8, which is elevated. I recommend that the patient have an echocardiogram done to rule out cardiogenic causes for an elevated central apnea index. In the event that the treatment-emergent central apneas persist, she will need to have an ejection fraction of 45% or greater to be a candidate for ASV. This should be used with all episodes of sleep.? Compliance should be reviewed within 31-90 days of starting therapy for usage greater than 4 hours per night greater than 70% of the nights. The patient should be asked about symptoms such as?excessive daytime sleepiness, quality of sleep, decreased nocturia, increased?mental functioning such as memory, mood, and concentration. Data The data obtained during this sleep study is adequate for interpretation. Certification This sleep study has been reviewed by a board certified sleep medicine physician.
== END 2025-03-28 07:12 | disposition home or self-care (01) ==
LOC: ANHCSM 09:52
PROVIDERS: PCP Family Medicine; Visit Provider Family Medicine
DX: G47.33 Obstructive sleep apnea (adult) (pediatric) (principal); G47.39 Other sleep apnea; T81.89XA Other complications of procedures, not elsewhere classified, initial encounter
CPT/HCPCS: 95811

== ENCOUNTER 2025-05-29 09:34 | Outpatient (CLI) | payer MEDICARE, OTHER, SELFPAY ==
--- NOTE | 2025-05-29 09:45 | ECHO_ITS ---
Patient Info Name: Mally De La Rosa Age: 75 years : 1950 Gender: Female Ht: 63 in Wt: 165 lbs BSA: 1.85 m2 HR: 54 bpm BP: 174 / 97 mmHg Technical Quality: Excellent Exam Date: 05/29/2025 9:51 AM Patient Status: O Admit Date: 05/29/2025 Exam Type: CA echo doppler color flow Complete two-dimensional, color flow and Doppler transthoracic echocardiogram is performed. Php Mag[employer] Developer: Elicia Larios Attending Provider: Diane Cabrera MD Summary 1. Complete two-dimensional, color flow and Doppler transthoracic echocardiogram is performed. 2. Left ventricular chamber dimension is normal. 3. Left ventricular systolic function is normal, estimated at 60-65. 4. The left ventricular diastolic function is grade I diastolic dysfunction. 5. E/e' 11 is mildly elevated. 6. Left atrial chamber dimension is moderately enlarged. 7. There is mild mitral valve regurgitation. 8. There is mild tricuspid valve regurgitation. 9. Moderate pulmonary hypertension, estimated pulmonary arterial systolic pressure is 52 mmHg. Left Ventricle E/e' 11 is mildly elevated. Left ventricular chamber dimension is normal. Left ventricular systolic function is normal, estimated at 60-65. The left ventricular diastolic function is grade I diastolic dysfunction. Right Ventricle Right ventricular chamber dimension is normal. Right ventricular systolic function is normal and with normal TAPSE 2.3 cm. Left Atria Left atrial chamber dimension is moderately enlarged. Right Atria Right atrial chamber dimension is normal. Aortic Valve The aortic valve is trileaflet. There is no aortic valve stenosis. There is no aortic valve regurgitation. Pulmonic Valve There is no pulmonic regurgitation. Mitral Valve There is no mitral valve stenosis. There is mild mitral valve regurgitation. Tricuspid Valve There is mild tricuspid valve regurgitation. Moderate pulmonary hypertension, estimated pulmonary arterial systolic pressure is 52 mmHg. Pericardium/Pleural There is no pericardial effusion. Inferior Vena Cava Normal inferior vena cava with >50% collapse upon inspiration consistent with normal right atrial pressure, 5 mmHg. Aorta The aortic root size at the sinus of Valsalva is normal. Left Ventricular Outflow Tract Name Value Normal LVOT 2D LVOT Diameter 1.9 cm LVOT Doppler LVOT Peak Velocity 151 cm/s LVOT Peak Gradient 9 mmHg LVOT Mean Gradient 4 mmHg LVOT VTI 37 cm LVOT VTI/AV VTI Ratio 0.8 LVOT Stroke Volume 103 ml LVOT CO 5.5 l/min LVOT CI 3.0 l/min/m2 Pulmonic Valve Name Value Normal RVOT Doppler RVOT Peak Velocity 55 cm/s RVOT Peak Gradient 1 mmHg PV Doppler PV Peak Velocity 92 cm/s PV Peak Gradient 3 mmHg Mitral Valve Name Value Normal MV Diastolic Function MV E Peak Velocity 99 cm/s MV A Peak Velocity 120 cm/s MV E/A 0.8 MV Decel Time (PW) 244 ms MV Annular TDI MV E/e' (Septal) 11.7 MV E/e' (Lateral) 12.1 MV E/e' (Average) 11.9 Tricuspid Valve Name Value Normal TV Regurgitation Doppler TR Peak Velocity 343 cm/s TR Peak Gradient 47 mmHg Estimated PAP/RSVP RA Pressure 5 mmHg <=5 PA Systolic Pressure 52 mmHg <36 RV Systolic Pressure 52 mmHg <36 Aortic Valve Name Value Normal AV Doppler AV Peak Velocity 164 cm/s AV Peak Gradient 11 mmHg AV Mean Gradient 6 mmHg AV VTI 45 cm AV Area (Cont Eq VTI) 2.3 cm2 >=3.0 AV Area (Cont Eq Bijan) 2.5 cm2 AV DI (Bijan) 0.92 AV Regurgitation 2D LVOT Area 2.8 cm2 Ventricles Name Value Normal LV Dimensions 2D/MM IVS Diastolic Thickness (2D) 1.0 cm 0.6-1.0 LVID Diastole (2D) 4.6 cm 3.8-5.2 LVIW Diastolic Thickness (2D) 0.8 cm 0.6-0.9 LVID Systole (2D) 3.1 cm 2.2-3.5 LVOT Diameter 1.9 cm LV Mass (2D Cubed) 140.07 g 67.00-162.00 LV Mass Index (2D Cubed) 76 g/m2 43-95 Relative Wall Thickness (2D) 0.36 <=0.42 LV Fractional Shortening/Ejection Fraction 2D/MM LV Fractional Shortening (2D) 32 % 27-45 LV EF (2D Teichholz) 61 % LV Diastolic Volume (4C MOD) 118 ml LV EF (4C MOD) 57 % LV Diastolic Volume (2C MOD) 130 ml LV EF (2C MOD) 66 % LV Diastolic Volume (BP MOD) 123 ml 46-106 LV Diastolic Volume Index (BP MOD) 67 ml/m2 29-61 LV Systolic Volume (BP MOD) 48 ml 14-42 LV Systolic Volume Index (BP MOD) 26 ml/m2 8-24 LV EF (BP MOD) 61 % 54-74 LV Diastolic Length (4C) 7.9 cm LV Systolic Length (4C) 7.0 cm LV Stroke Volume (4C MOD) 68 ml Atria Name Value Normal LA Dimensions LA Volume (4C A-L) 87 ml LA Volume (BP A-L) 77 ml RA Dimensions RA Systolic Major [place] Length (4C) 5.5 cm 2.2-2.8 RA Area (4C) 15.6 cm2 <=18.0 Report Signatures
--- OUTSIDE RECORDS SUMMARY | 2025-05-29 09:47 | XMS_ITS | Clinical Summary ---
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 Gender Identity Not on file Sexual Orientation Not on file Plan of Treatment Health Maintenance Due Date Last Done Comments Hepatitis C Virus (HCV) Screening 1950 TdaP Immunization 1950 Cologuard 1996 Colonoscopy 1996 Colorectal Cancer Screening 1996 Immunochemical Fecal Occult Blood 1996 Zoster Immunization (1 of 2) 2001 Pneumococcal Immunization (50+ years) (2 of 2 - PPSV23) 10/28/2022 10/28/2021 SARS-COV-2 Immunization ( season) 2024 09/04/2021, 01/31/2021, 01/10/2021 Influenza Immunization (Season Ended) 2025 10/28/2021, 09/23/2020, 09/10/2019, Additional history exists Respiratory Syncytial Virus (RSV) Immunization (Adult) (1 - 1-dose 75+ series) 2026 Hepatitis B Immunization Aged Out No longer eligible based on patient's age to complete this topic Human Papillomavirus (HPV) Immunization Aged Out No longer eligible based on patient's age to complete this topic Meningococcal Immunization (ACWY) Aged Out No longer eligible based on patient's age to complete this topic Rotavirus Immunization Aged Out No lo nger eligible based on patient's age to complete this topic
--- OUTSIDE RECORDS SUMMARY | 2025-05-29 09:47 | XMS_ITS | Clinical Summary ---
Author Organization [facility] Address [address] [place] [address] Care Team Providers Care [employer] Presser Name Role Phone Diane Cabrera MD Primary Care Provider [phone] Source Comments [facility],non-owned Affiliates and Associated Physician Practices is amultiple site organization consisting of ambulatory clinics and hospital sitesin [place] and [place]. This disclosure is being madepursuant to the Care Everywhere program and may not contain all information available regarding this patient. Last updated 18.[facility] Allergies No known active allergies Medications * [...] BY MOUTH EVERY 12 HOURS 08/25/2024 Active diclofenac sodium EC (Voltaren) 75 MG tablet Take 1 (one) tablet by mouth 2 times daily 12/28/2024 Active multivitamin daily tablet Take 1 (one) [...] capsules by mouth 2 times daily Active erythromycin (Romycin) 5 MG/GM ophthalmic ointment Instill into left eye 4 times daily 4 g 2 04/01/2025 Active Active Problems Problem Noted Date Diagnosed Date Orbital mass 04/01/2025 Encounters Date Type Department Care Team Description 05/09/2025 11:00 AM CDT Office Visit [facility] - Ophthalmology [address] [place] [phone] Raven Salas, GERMAIN-LINDA Orbital mass (Primary Dx) 04/09/2025 10:30 AM CDT Office Visit [facility] - Ophthalmology [address] [place] [phone] Raven Salas, GERMAIN-LINDA Orbital lesion (Primary Dx) 04/09/2025 Travel 04/01/2025 11:21 AM CDT Anesthesia Event [facility] SURG[facility] [address] [place] [phone] Enrrique Maradiaga MD Bair, Jenelle, APRN-CNP 04/01/2025 11:05 AM CDT - 04/01/2025 12:25 PM CDT Surgery [facility] [address] [place] [phone] Rosemary Cary MD Left orbitotomy with excisional biopsy, LEFT EYE 04/01/2025 9:24 AM CDT - 04/01/2025 1:39 PM CDT Hospital Encounter [facility] [address] [place] [phone] Rosemary Cary MD Surgery General Discharge Disposition: Home or Self Care 04/01/2025 Travel 02/27/2025 Telephone [facility] - Ophthalmology [address] [place] [phone] Raven Salas APRN-LINDA Surgery Scheduling from Last 3 Months Social History Tobacco Use Types Packs/Day Years Used Date Smoking Tobacco: Never Smokeless Tobacco: Never Tobacco Cessation:Counseling Given: Not Answered Alcohol Use Standard Drinks/Week Comments Yes 0 (1 standard drink = 0.6 oz pur e alcohol) rare AUDIT-C Answer Date Recorded Q1: How often do you have a drink containing alcohol? Never 04/01/2025 Q2: How many drinks containi ng alcohol do you have on a typical day when you are drinking? Patient does not drink Q3: How often do you have si x or more drinks on one occasion? Never 04/01/2025 Comments No Sex and Gender Information Value Date Recorded Sex Assigned at Not on file Legal Sex Female 1:39 PM CDT Gender Identity Not on file Sexual Orientation Not on file Last Filed Vital Signs Vital Sign Reading Time Taken Comments Blood Pressure 174/71 04/01/2025 1:00 PM CDT Pulse 49 04/01/2025 1:00 PM CDT Temperature 36.7 C (98.1 F) 04/01/2025 12:50 PM CDT Respiratory Rate 10 04/01/2025 1:00 PM CDT Oxygen Saturation 94% 04/01/2025 1:00 PM CDT Inhaled Oxygen Concentration - - Weight 75.7 kg (166 lb 12.8 oz) 04/01/2025 9:38 AM CDT Height 160 cm (5' 3) 04/01/2025 9:38 AM CDT Body Mass Index 29.55 04/01/2025 9:38 AM CDT Plan of Treatment Health Maintenance Due Date [...] 2001 COVID-19 VACCINE (2023-2 5 season) 2024 DEPRESSION SCREENING 11/28/2024 INFLUENZA [...] Procedure Name Priority Date/Time Associated Diagnosis Comments PATHOLOGY TISSUE Routine 04/01/2025 12:3 1 PM CDT Orbital lesion DE EXPLORE EYE SOCKET 04/01/2025 11:17 AM CDT Orbital lesion Special Needs SUPINE, MAC LOCAL from Last 3 Months Results * PATHOLOGY TISSUE (04/01/2025 12:31 PM CDT) Case Report Surgical Pathology Report Case: [id number] Authorizing Provider: Rosemary Cary MD Collected: 04/01/2025 12:31 PM Ordering Location: [facility] Received: 04/02/2025 07:12 AM Pathologist: Farhan Reynoso MD Specimen: Soft Tissue, Other, Left Orbital Mass 04/03/2025 10:52 AM CDT [facility] Final Diagnosis Left orbital mass, 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 04/03/2025 10:52 AM CDT [facility] at 1052 CDT Microscopic Description and Comment Microscopic examination is performed and supports the final diagnosis. There is no evidence of a neoplasm. 04/03/2025 10:52 AM CDT [facility] Clinical History Left orbital mass of the lacrimal gland 04/03/2025 10:52 AM [facility] Gross Description The requisition and specimen(s) are identified with the patient's name, Mally De La Rosa. Received in formalin, labeled specimen A, is an ovoid piece of rubbery firm pink-weeks tissue 1.0 x 0.8 x 0.4 cm. The outer surface is inked blue. Sectioning shows a small cystic space measuring approximately 3 mm in diameter. The specimen is submitted entirely in cassette A1. AL 04/03/2025 10:52 AM [facility] Pathologist Location at [facility] 04/03/2025 10:52 AM [facility] Disclaimer The performance characteristics of all immunohistochemical and indirect immunofluorescence stains (if any) cited in this report were determined by the Histopathology Laboratory of [facility]. Some of these tests were developed by our own laboratory and have not been cleared or approved by the US Food and Drug Administration. The FDA does not require this test to go through premarket FDA review. These tests are used for clinical purposes. They should not be regarded as investigational or for research. This laboratory is certified under the Clinical Laboratory Improvement Amendments (CLIA) as qualified to perform high complexity clinical laboratory testing. This case has been personally reviewed and interpreted by the attending (teaching) pathologist. 04/03/2025 10:52 AM [facility] Embedded Images 04/03/2025 10:52 AM [facility] Biopsy, Excision (Soft Tissue, Other) 04/01/2025 12:31 PM CDT 04/02/2025 7:12 AM CDT Comment:Pre-op diagnosis: Orbital lesions us Rosemary Cary MD LAB - PATHOLOGY/CYTOLOGY ORDERABLES Final Result [facility] [address] [place] [address], [facility] [phone] from Last 3 Months Insurance MEDICARE [facility] Care Teams [employer] Presser Relationship Specialty Start Date End Date Diane Cabrera MD [address] [place] [address] PCP - General Family Medicine 09/17/24
== END 2025-05-29 09:35 | disposition home or self-care (01) ==
LOC: ANHCARD 09:36
PROVIDERS: PCP Family Medicine; Visit Provider Family Medicine
DX: R93.1 Abnormal findings on diagnostic imaging of heart and coronary circulation (principal); G47.33 Obstructive sleep apnea (adult) (pediatric); T81.89XA Other complications of procedures, not elsewhere classified, initial encounter; G47.37 Central sleep apnea in conditions classified elsewhere
CPT/HCPCS: 93306